=== PATIENT | male | born 1965 | race Caucasian/White ===

== ENCOUNTER 2016-08-06 15:21 | Inpatient (IN) | payer BC ==
[~2016-08-06] VITALS: Ht 177.8 cm; Wt 100.6 kg
--- NOTE | 2016-08-06 16:05 | EMERGENCY ROOM VISIT NOTE ---
History First contact with patient: 15:37 Chief Complaint: CALF PAIN Stated Complaint: MODERATE TO SEVERE CALF PAIN, LEFT History of Present Illness The patient is a 50 year old male who presents to the Emergency Room with complaints of left calf pain. The patient states that he has had pain in the left calf for 5 days. He described the pain as a tightness. He states that his progressively worsened over the last week. He rates his discomfort a 5/10. The patient does not recall any specific injury. 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 He had been on Coumadin in the past but it was stopped after several episodes of hemoptysis. He has seen Dr. Cortes. The patient denies any pain in his chest or trouble breathing. He denies any fever. He denies any cough. He denies any knee pain. He denies any redness, swelling or warmth. Review of Systems A 10 system review of systems was completed with positives and pertinent negatives listed in the HPI. Past Medical/Surgical History Medical Problems: (1) History of histoplasmosis (2) Hypothyroidism Nos (3) Idiopathic fibrosing mediastinitis (4) Migraine W Aura W/O Intract Mgrn W/O Status Migrainosus (5) Oth Pulmon Embolism/Infarct (6) Pulmonary emboli (7) Pulmonary hypertension associated with mediastinal fibrosis Family History Cancer Social History Smoking Status: Never Smoker Alcohol Use: occasionally Marital Status: Occupation Status: retired, disabled Current/Historical Medications Scheduled Budesonide/Formoterol Fumarate (Symbicort 160/4.5 Inhaler ), 1 PUFFS INH BID Cetirizine/Pseudoephedrine (Zyrtec-D Er 5MG/120MG), 1 TABLET PO Q12H Levothyroxine Sodium (Synthroid), 50 MCG PO DAILY Mometasone Furoate (Nasonex), 2 SPRAYS FABIANO DAILY Nortriptyline (Pamelor), 50 MG PO HS Scheduled PRN Albuterol Inhaler (Ventolin Inhaler), 2 PUFFS INH QID PRN for ALLERGIC REACTION Oxycodone HCl (Oxycodone HCl), 5 MG PO Q4 PRN for Pain Allergies Coded Allergies: No Known Allergies (Verified , 10/29/15) Physical Exam Vital Signs Date Time Temp Pulse Resp B/P Pulse Ox O2 Delivery O2 Flow Rate FiO2 08/06/16 19:24 74 18 113/75 94 Room Air 08/06/16 17:29 71 16 111/78 95 08/06/16 15:31 36.7 91 18 125/81 93 Room Air Physical Exam VITALS: Vitals are noted on the nurse's note and reviewed by myself. Vital signs stable. GENERAL: This is a 50-year-old male, in no acute distress, nondiaphoretic, well- developed well-nourished. SKIN: The skin was without rashes, erythema, edema, or bruising. There is no tenting of the skin. Capillary reflex less than 2 seconds. HEAD: Normocephalic atraumatic. EARS: The external ears are normal in appearance. EYES: Pupils equal round and reactive to light and accommodation. Conjunctivae without injection, sclerae without icterus. Extraocular movements intact. NOSE: Patent, turbinates without inflammation or discharge. MOUTH: Mucous membranes moist. Tonsils are not enlarged. Pharynx without erythema or exudate. Uvula midline. Airway patent. Tongue does not deviate. NECK: Supple without nuchal rigidity. No lymphadenopathy. No thyromegaly. Cervical spine is nontender. No JVD. HEART: Regular rate and rhythm without murmurs gallops or rubs. LUNGS: Clear to auscultation bilaterally without wheezes, rales or rhonchi. No retractions or accessory muscle use. MUSCULOSKELETAL: No muscle atrophy, erythema, or edema noted. Full range of motion without joint tenderness in all extremities. There is tenderness to palpation of the left calf. Normal gait. Strength 5/5 throughout. NEURO: Patient was alert and oriented to person place and time. No focal neurological deficits. Medical Decision & Procedures ER Provider Diagnostic Interpretation: LEFT LOWER EXTREMITY VENOUS DOPPLER CLINICAL HISTORY: Left calf pain. COMPARISON STUDY: Left lower extremity venous Doppler August 16, 2006. TECHNIQUE: Sonography of the deep venous system of the left lower extremity was performed. Compression and augmentation were evaluated. FINDINGS: The left common femoral and superficial femoral veins were patent. There is thrombus within a superficial vein which drains into the left popliteal vein. The thrombus slightly extends into the left popliteal vein. No additional sites of venous thrombus identified within the left lower extremity. IMPRESSION: Deep venous thrombus within the left popliteal vein and superficial thrombus within a vein which drains into the left popliteal vein. Laboratory Results 08/06/16 16:05 Red Blood Count 4.63, Mean Corpuscular Volume 89.6, Mean Corpuscular Hemoglobin 32.0, Mean Corpuscular Hemoglobin Concent 35.7, Mean Platelet Volume 8.9, Neutrophils (%) (Auto) 58.3, Lymphocytes (%) (Auto) 30.0, Monocytes (%) (Auto) 9.9, Eosinophils (%) (Auto) 1.3, Basophils (%) (Auto) 0.3, Neutrophils # (Auto) 3.47, Lymphocytes # (Auto) 1.79, Monocytes # (Auto) 0.59, Eosinophils # (Auto) 0.08, Basophils # (Auto) 0.02 08/06/16 16:05 Test 08/06/16 16:05 White Blood Count 5.96 K/uL (4.8-10.8) Red Blood Count 4.63 M/uL (4.7-6.1) Hemoglobin 14.8 g/dL (14.0-18.0) Hematocrit 41.5 % (42-52) Mean Corpuscular Volume 89.6 fL (80-100) Mean Corpuscular Hemoglobin 32.0 pg (25-34) Mean Corpuscular Hemoglobin Concent 35.7 g/dl (32-36) Platelet Count 162 K/uL (130-400) Mean Platelet Volume 8.9 fL (7.4-10.4) Neutrophils (%) (Auto) 58.3 % Lymphocytes (%) (Auto) 30.0 % Monocytes (%) (Auto) 9.9 % Eosinophils (%) (Auto) 1.3 % Basophils (%) (Auto) 0.3 % Neutrophils # (Auto) 3.47 K/uL (1.4-6.5) Lymphocytes # (Auto) 1.79 K/uL (1.2-3.4) Monocytes # (Auto) 0.59 K/uL (0.11-0.59) Eosinophils # (Auto) 0.08 K/uL (0-0.5) Basophils # (Auto) 0.02 K/uL (0-0.2) RDW Standard Deviation 42.4 fL (36.4-46.3) RDW Coefficient of Variation 13.0 % (11.5-14.5) Immature Granulocyte % (Auto) 0.2 % Immature Granulocyte # (Auto) 0.01 K/uL (0.00-0.02) Prothrombin Time 10.1 SECONDS (9.0-12.0) Prothromb Time International Ratio 0.9 (0.9-1.1) Activated Partial Thromboplast Time 28.7 SECONDS (21.0-31.0) Partial Thromboplastin Ratio 1.1 Anion Gap 11.0 mmol/L (3-11) Est Creatinine Clear Calc Drug Dose 136.8 ml/min Estimated GFR () 112.1 Estimated GFR (Non- 96.7 BUN/Creatinine Ratio 19.5 (10-20) Calcium Level 8.9 mg/dl (8.5-10.1) Total Bilirubin 0.3 mg/dl (0.2-1) Aspartate Amino Transf (AST/SGOT) 27 U/L (15-37) Alanine Aminotransferase (ALT/SGPT) 41 U/L (12-78) Alkaline Phosphatase 104 U/L (45-117) Total Protein 6.7 gm/dl (6.4-8.2) Albumin 3.8 gm/dl (3.4-5.0) Globulin 2.9 gm/dl (2.5-4.0) Albumin/Globulin Ratio 1.3 (0.9-2) ED Course The patient was seen and examined. Previous visits were reviewed. The patient does not have a fever or leukocytosis. He does not have any significant electrolyte abnormalities. INR is 0.9. Ultrasound of the left lower extremity confirms DVT The patient has a very complicated and extensive past medical history. He has fibrosing mediastinitis secondary to chronic histoplasmosis and has had subsequent superior vena cava syndrome and pulmonary hypertension. The patient had been on anticoagulants until last October when he developed hemoptysis. The patient denies any pain in his chest or trouble breathing currently. His vital signs are stable. Given the patient's complex history and DVT, he will require further evaluation and consultation in the treatment of the DVT. I discussed the case with Dr. Cox and he will evaluate the patient. The case was also discussed with Dr. Gil who agrees with the assessment and treatment plan Medical Decision The differential diagnosis includes DVT, muscle strain, contusion, cellulitis, superficial thrombophlebitis, PE, coagulopathy, among others Impression Primary Impression: Leg DVT (deep venous thromboembolism), acute Departure Information Referrals Temo Cortes M.D. (PCP) Patient Instructions My [facility] Problem Qualifiers Primary Impression: Leg DVT (deep venous thromboembolism), acute Laterality: left Qualified Codes: I82.402 - Acute embolism and thrombosis of unspecified deep veins of left lower extremity
[2016-08-06 16:27] LABS: BASO % 0.3 %; BASO ABS # 0.02 K/uL (0-0.2); COMPLETE YES; EOS % 1.3 %; HEMATOCRIT 41.5 % (42-52); IG% 0.2 %; LYMPH ABS # 1.79 K/uL (1.2-3.4); MEAN CELL VOLUME 89.6 fL (80-100); MEAN CORPUSCULAR HGB CONC 35.7 g/dl (32-36); MEAN PLATELET VOLUME 8.9 fL (7.4-10.4); MONO % 9.9 %; NEUT % 58.3 %; PLATELET COUNT 162 K/uL (130-400); RED BLOOD COUNT 4.63 M/uL (4.7-6.1); WHITE BLOOD COUNT 5.96 K/uL (4.8-10.8)
[2016-08-06 16:38] LABS: INR 0.9 (0.9-1.1); PARTIAL THROMBOPLASTIN RATIO 1.1; PROTHROMBIN TIME (PATIENT) 10.1 SECONDS (9.0-12.0)
[2016-08-06 16:48] LABS: BUN/CREATININE RATIO 19.5 (10-20); CALCIUM 8.9 mg/dl (8.5-10.1); CREATININE 0.93 mg/dl (0.60-1.40); POTASSIUM 3.9 mmol/L (3.5-5.1)
[2016-08-06 16:51] LABS: ALB/GLOB RATIO 1.3 (0.9-2)
--- NOTE | 2016-08-06 17:34 | DIAGNOSTIC IMAGING REPORT ---
LEFT LOWER EXTREMITY VENOUS DOPPLER CLINICAL HISTORY: Left calf pain. COMPARISON STUDY: Left lower extremity venous Doppler August 16, 2006. TECHNIQUE: Sonography of the deep venous system of the left lower extremity was performed. Compression and augmentation were evaluated. FINDINGS: The left common femoral and superficial femoral veins were patent. There is thrombus within a superficial vein which drains into the left popliteal vein. The thrombus slightly extends into the left popliteal vein. No additional sites of venous thrombus identified within the left lower extremity. IMPRESSION: Deep venous thrombus within the left popliteal vein and superficial thrombus within a vein which drains into the left popliteal vein. Electronically signed by: Tucker Thornton M.D. 08/06/2016 5:32 PM Dictated Date/Time: 08/06/2016 5:30 PM
[2016-08-06] MEDS ORDERED: OPTIRAY 320 IV PRN (19:15)
--- NOTE | 2016-08-06 20:09 | DIAGNOSTIC IMAGING REPORT ---
RIGHT LOWER EXTREMITY VENOUS DOPPLER CLINICAL HISTORY: Left lower extremity deep venous thrombus. COMPARISON STUDY: Right lower extremity venous Doppler October 21 2015. TECHNIQUE: Sonography of the deep venous system of the right lower extremity was performed. Compression and augmentation were evaluated. FINDINGS: The right common femoral, superficial femoral and popliteal veins were compressible. Augmentation was normal. Flow was shown within the deep calf vessels. IMPRESSION: No evidence of deep venous thrombus within the right lower extremity. Electronically signed by: Tucker Thornton M.D. 08/06/2016 8:07 PM Dictated Date/Time: 08/06/2016 8:06 PM
--- NOTE | 2016-08-06 21:24 | DIAGNOSTIC IMAGING REPORT ---
CT ANGIOGRAPHY OF THE CHEST, PULMONARY EMBOLUS PROTOCOL CLINICAL HISTORY: Left lower extremity deep venous thrombus. History of hemoptysis and fibrosing mediastinitis. COMPARISON STUDY: Chest CT October 29, 2015. TECHNIQUE: Following IV administration of 105 mL of Optiray-320, helical axial images of the chest were obtained utilizing the pulmonary embolus protocol. Maximal intensity projections and sagittal and coronal reformats were viewed on an independent 3D workstation. IV contrast was administered without complication. CT DOSE: 702.41 mGy.cm FINDINGS: Partially calcified ill-defined mass-like abnormality centered within the right hilum is unchanged. An occluded stent within the right main pulmonary artery is unchanged in appearance. The appearance of the mediastinum is similar to exam of October 29, 2015. There is associated chronic occlusion of the superior vena cava with associated significant collateral formation. Mild cardiomegaly is unchanged. Mild dilatation of the central pulmonary arteries is noted. There has been interval development of numerous left-sided pulmonary emboli including segmental emboli within the left upper and lower lobes. Extensive ground glass opacity within the right lung has slightly progressed. There is mosaic attenuation with groundglass opacity within the left lung. Bony thorax and upper abdomen are unremarkable. IMPRESSION: 1. Interval development of numerous left-sided pulmonary emboli. Discussed with Dr. Connell at time of dictation. 2. No change in appearance of the occluded right pulmonary artery stent. No contrast reaches the right pulmonary artery system. Slight increase in nonspecific groundglass opacity and interstitial thickening within the right lung since prior exam. 3. Chronic SVC occlusion with associated collateral formation. 4. Dilated central pulmonary arteries which suggests pulmonary arterial hypertension. 5. Stable findings suggestive of fibrosing mediastinitis. Electronically signed by: Tucker Thornton M.D. 08/06/2016 9:22 PM Dictated Date/Time: 08/06/2016 8:24 PM
[2016-08-06] MEDS ORDERED: MoRPHine SULFATE 2 MG/ML CARP IV PRN (21:30)
[2016-08-06] MEDS ORDERED: LORAZEPAM 2 MG/ML 1 ML VIAL IV PRN (21:30)
[2016-08-06] MEDS ORDERED: DiphenhydrAMINE HCL 50 MG/ML VIAL IV PRN (21:30)
[2016-08-06] MEDS ORDERED: LEVALBUTEROL/IPRATROPIUM NEB INH PRN (21:30)
[2016-08-06] MEDS ORDERED: ALBUTEROL HFA 8 GM INHALER INH PRN (21:30)
[2016-08-06] MEDS ORDERED: ONDANSETRON INJ 2 MG/ML 2 ML VIAL IV PRN (21:30)
[2016-08-06] MEDS ORDERED: PROMETHAZINE HCL INJ 12.5 MG in SODIUM CHLORIDE 0.9% 50ML 50 ML IV PRN (21:30)
[2016-08-06] MEDS ORDERED: ZOLPIDEM TARTRATE 5 MG TAB PO PRN (21:30)
[2016-08-06] MEDS ORDERED: ACETAMINOPHEN 325 MG TAB PO PRN (21:30)
[2016-08-06] MEDS ORDERED: IPRATROPIUM BROMIDE NEB SOLN 0.02% 2.5 ML VIAL INH PRN (22:00)
[2016-08-06] MEDS ORDERED: LEVALBUTEROL 1.25MG/0.5ML NEB INH PRN (22:00)
[2016-08-06 22:02] VITALS: BP 133/86; PULSE 74; TEMP 36.7; O2SAT 97
[2016-08-06] MEDS ORDERED: NURSING VERBAL MED ORDER ONE (22:45)
--- NOTE | 2016-08-06 23:02 | History and Physical ---
History & Physical Date & Time of Service: Aug 06, 2016 at 22:44 Chief Complaint: Pulmonary Emboli, Pulmonary Hypertension Primary Care Physician: Temo Cortes M.D. History of Present Illness Source: patient, spouse The patient is a 50-year-old male with a past medical history of idiopathic fibrosing mediastinitis, superior vena cava syndrome, pulmonary artery stenosis , who presents emergency department complaining of left calf pain that began about one week ago and has progressively worsened. He has not had any recent injury and has not had any recent travel. He had been on Coumadin in the past, but this was stopped after having had several episodes of hemoptysis. The patient has not had any chest pain or change in his usual breathing patterns. He has a chronic intermittent cough as nonproductive. Past Medical/Surgical History Medical Problems: (1) History of histoplasmosis Status: Chronic (2) Idiopathic fibrosing mediastinitis Status: Chronic (3) Pulmonary hypertension associated with mediastinal fibrosis Status: Chronic Family History Cancer Social History Smoking Status: Never Smoker Smokeless Tobacco Use: No Alcohol Use: none Drug Use: none Marital Status: Housing status: lives with family Occupational Status: retired, disabled Immunizations History of Influenza Vaccine: No Influenza Vaccine Date: May 06, 2011 History of Tetanus Vaccine?: Yes Tetanus Immunization Date: May 18, 2004 History of Pneumococcal: 2009 Pneumococcal Date: May 18, 2008 History of Hepatitis B Vaccine: No Multi-Drug Resistant Organisms History of MDRO: No Allergies Coded Allergies: No Known Allergies (Verified , 10/29/15) Home Medications Scheduled Budesonide/Formoterol Fumarate (Symbicort 160/4.5 Inhaler ), 1 PUFFS INH BID Cetirizine/Pseudoephedrine (Zyrtec-D Er 5MG/120MG), 1 TABLET PO Q12H Levothyroxine Sodium (Synthroid), 50 MCG PO DAILY Mometasone Furoate (Nasonex), 2 SPRAYS FABIANO DAILY Nortriptyline (Pamelor), 50 MG PO HS Scheduled PRN Albuterol Inhaler (Ventolin Inhaler), 2 PUFFS INH QID PRN for ALLERGIC REACTION Oxycodone HCl (Oxycodone HCl), 5 MG PO Q4 PRN for Pain Review of Systems The patient denies chest pain, palpitations, any change in breathing, vision change, hearing change, sore throat, fevers, chills, sweats, weight change, fatigue, nausea, vomiting, abdominal pain, pelvic pain, blood in urine or stool , dysuria, urinary frequency or urgency, lightheadedness, dizziness, headache, memory loss, rash, abnormal bruising or bleeding, imbalance, focal or generalized weakness, numbness or tingling in arms, back or neck pain, night sweats, or allergy symptoms. The review of systems is otherwise negative other than for that already noted above, and at least 10 systems have been reviewed. Physical Exam Vital Signs Date Time Temp Pulse Resp B/P Pulse Ox O2 Delivery O2 Flow Rate FiO2 08/06/16 22:02 36.7 74 18 133/86 97 Room Air 08/06/16 21:39 79 16 117/76 95 Room Air 08/06/16 19:24 74 18 113/75 94 Room Air 08/06/16 17:29 71 16 111/78 95 08/06/16 15:31 36.7 91 18 125/81 93 Room Air The patient is awake, well-developed and adequately nourished, alert and oriented 3, normocephalic and atraumatic, lying in bed and in no acute distress. HEENT--PERRL, EOMI, mucous membranes moist, and oropharynx normal. Neck--supple, no JVD or bruits, thyroid normal, trachea midline, no adenopathy. Heart--normal S1 and S2, no extra beats, no murmurs, rubs or gallops. Lungs--crackles at the right base to half way up, scattered crackles on the left , no respiratory distress, no accessory muscle use. Abdomen--normal bowel sounds and soft, nontender and nondistended, no hernias or masses, no organomegaly. Extremities--no cyanosis, clubbing. There is trace to 1+ pitting Edema on the left, and a mild increase in circumference on the left compared to right. There are good distal pulses b/l. Dermatologic--normal skin turgor, normal color, warm and dry, no abnormal lymph nodes, no rash. Neurologic--cranial nerves II through XII grossly intact. Psychiatric--normal affect. Diagnostics Laboratory Results Results Past 24 Hours Test 08/06/16 16:05 08/06/16 21:23 08/06/16 21:51 Range/Units White Blood Count 5.96 4.8-10.8 K/uL Red Blood Count 4.63 4.7-6.1 M/uL Hemoglobin 14.8 14.0-18.0 g/dL Hematocrit 41.5 42-52 % Mean Corpuscular Volume 89.6 80-100 fL Mean Corpuscular Hemoglobin 32.0 25-34 pg Mean Corpuscular Hemoglobin Concent 35.7 32-36 g/dl Platelet Count 162 130-400 K/uL Mean Platelet Volume 8.9 7.4-10.4 fL Neutrophils (%) (Auto) 58.3 % Lymphocytes (%) (Auto) 30.0 % Monocytes (%) (Auto) 9.9 % Eosinophils (%) (Auto) 1.3 % Basophils (%) (Auto) 0.3 % Neutrophils # (Auto) 3.47 1.4-6.5 K/uL Lymphocytes # (Auto) 1.79 1.2-3.4 K/uL Monocytes # (Auto) 0.59 0.11-0.59 K/uL Eosinophils # (Auto) 0.08 0-0.5 K/uL Basophils # (Auto) 0.02 0-0.2 K/uL RDW Standard Deviation 42.4 36.4-46.3 fL RDW Coefficient of Variation 13.0 11.5-14.5 % Immature Granulocyte % (Auto) 0.2 % Immature Granulocyte # (Auto) 0.01 0.00-0.02 K/uL Prothrombin Time 10.1 9.0-12.0 SECONDS Prothromb Time International Ratio 0.9 0.9-1.1 Activated Partial Thromboplast Time 28.7 21.0-31.0 SECONDS Partial Thromboplastin Ratio 1.1 Sodium Level 142 136-145 mmol/L Potassium Level 3.9 3.5-5.1 mmol/L Chloride Level 106 98-107 mmol/L Carbon Dioxide Level 25 21-32 mmol/L Anion Gap 11.0 3-11 mmol/L Blood Urea Nitrogen 18 7-18 mg/dl Creatinine 0.93 0.60-1.40 mg/dl Est Creatinine Clear Calc Drug Dose 136.8 ml/min Estimated GFR () 112.1 Estimated GFR (Non- 96.7 BUN/Creatinine Ratio 19.5 10-20 Random Glucose 97 70-99 mg/dl Calcium Level 8.9 8.5-10.1 mg/dl Total Bilirubin 0.3 0.2-1 mg/dl Aspartate Amino Transf (AST/SGOT) 27 15-37 U/L Alanine Aminotransferase (ALT/SGPT) 41 12-78 U/L Alkaline Phosphatase 104 45-117 U/L Total Protein 6.7 6.4-8.2 gm/dl Albumin 3.8 3.4-5.0 gm/dl Globulin 2.9 2.5-4.0 gm/dl Albumin/Globulin Ratio 1.3 0.9-2 Creatine Kinase MB Ratio 0-3.0 Total Creatine Kinase 56 39-308 U/L Creatine Kinase MB < 0.5 0.5-3.6 ng/ml Troponin I < 0.015 0-0.045 ng/ml Diagnostic Radiology Patient Name: LO PEREZ Unit Number: [id number] Dictated: 08/06/161729 Transcribed: 08/06/161729 DAVE Printed Date/Time: [~ rep prt dt]/[~ rep prt tm] [~ rep ct labl] - [~ rep ct ivnm] [facility] Radiology Department [place] [id number] Dictated: 08/06/161729 Transcribed: 08/06/161729 JA Printed Date/Time: [~ rep prt dt]/[~ rep prt tm] [~ rep ct labl] - [~ rep ct ivnm] CLINICAL HISTORY: Left calf pain. COMPARISON STUDY: Left lower extremity venous Doppler August 16, 2006. TECHNIQUE: Sonography of the deep venous system of the left lower extremity was performed. Compression and augmentation were evaluated. FINDINGS: The left common femoral and superficial femoral veins were patent. There is thrombus within a superficial vein which drains into the left popliteal vein. The thrombus slightly extends into the left popliteal vein. No additional sites of venous thrombus identified within the left lower extremity. IMPRESSION: Deep venous thrombus within the left popliteal vein and superficial thrombus within a vein which drains into the left popliteal vein. Electronically signed by: Tucker Thornton M.D. 08/06/2016 5:32 PM Dictated Date/Time: 08/06/2016 5:30 PM The status of this report is Signed. Draft = Not yet reviewed or approved by Radiologist. Signed = Reviewed and approved by Radiologist. <AttendingPhy></AttendingPhy> <FamilyPhy>Temo Cortes M.D.</FamilyPhy> < PrimaryPhy>Temo Cortes M.D.</PrimaryPhy> <UnitNumber>[id number]</ UnitNumber> <VisitNumber>[id number]</VisitNumber> <PatientName>LO PEREZ </PatientName> <DateOfBirth>1965</DateOfBirth> <Location>[facility]</Location> <ServiceDate>08/06/16</ServiceDate> <MNE>ESINDI</MNE> <OrderingPhy>Stephanie Harper PA-C</OrderingPhy> <OrderingPhyMNE>f rep ord dr cifuentes</OrderingPhyMNE > <DictatingPhyMNE>f rep dict dr cifuentes</DictatingPhyMNE> <CCListMNE>f rep ct mne</ CCListMNE> <AdmittingPhyMNE>f pt admit dr cifuentes</AdmittingPhyMNE> <AttendingPhyMNE >f pt attend dr cifuentes</AttendingPhyMNE> <ConsultingPhyMNE>f pt consult dr cifuentes</ConsultingPhyMNE> <FamilyPhyMNE>f pt fam dr cifuentes</FamilyPhyMNE> <OtherPhyMNE>f pt other dr cifuentes</OtherPhyMNE> < PrimaryPhyMNE>f pt prim care dr cifuentes</PrimaryPhyMNE> <ReferringPhyMNE>f pt referring dr cifuentes</ReferringPhyMNE> Patient Name: LO PEREZ Unit Number: [id number] Dictated: 08/06/162005 Transcribed: 08/06/162005 DAVE Printed Date/Time: [~ rep prt dt]/[~ rep prt tm] [~ rep ct labl] - [~ rep ct ivnm] [facility] [place] [address] Dictated: 08/06/162005 Transcribed: 08/06/162005 DAVE Printed Date/Time: [~ rep prt dt]/[~ rep prt tm] [~ rep ct labl] - [~ rep ct ivnm] [~ rep ct add3]] RIGHT LOWER EXTREMITY VENOUS DOPPLER CLINICAL HISTORY: Left lower extremity deep venous thrombus. COMPARISON STUDY: Right lower extremity venous Doppler October 21 2015. TECHNIQUE: Sonography of the deep venous system of the right lower extremity was performed. Compression and augmentation were evaluated. FINDINGS: The right common femoral, superficial femoral and popliteal veins were compressible. Augmentation was normal. Flow was shown within the deep calf vessels. IMPRESSION: No evidence of deep venous thrombus within the right lower extremity. Electronically signed by: Tucker Thornton M.D. 08/06/2016 8:07 PM Dictated Date/Time: 08/06/2016 8:06 PM The status of this report is Signed. Draft = Not yet reviewed or approved by Radiologist. Signed = Reviewed and approved by Radiologist. <AttendingPhy></AttendingPhy> <FamilyPhy>Temo Cortes M.D.</FamilyPhy> < PrimaryPhy>Temo Cortes M.D.</PrimaryPhy> <UnitNumber>[id number]</ UnitNumber> <VisitNumber>[id number]</VisitNumber> <PatientName>LO PEREZ </PatientName> <DateOfBirth>1965</DateOfBirth> <Location>[facility]</Location> <ServiceDate>08/06/16</ServiceDate> <MNE>ESINDI</MNE> <OrderingPhy>Bernardo Connell M.D.</OrderingPhy> <OrderingPhyMNE>f rep ord dr cifuentes</OrderingPhyMNE> < DictatingPhyMNE>f rep dict dr cifuentes</DictatingPhyMNE> <CCListMNE>f rep ct mne</ CCListMNE> <AdmittingPhyMNE>f pt admit dr cifuentes</AdmittingPhyMNE> <AttendingPhyMNE >f pt attend dr cifuentes</AttendingPhyMNE> <ConsultingPhyMNE>f pt consult dr cifuentes</ConsultingPhyMNE> <FamilyPhyMNE>f pt fam dr cifuentes</FamilyPhyMNE> <OtherPhyMNE>f pt other dr cifuentes</OtherPhyMNE> < PrimaryPhyMNE>f pt prim care dr cifuentes</PrimaryPhyMNE> <ReferringPhyMNE>f pt referring dr cifuentes</ReferringPhyMNE> Patient Name: LO PEREZ Unit Number: [id number] Dictated: 08/06/162023 Transcribed: 08/06/162035 DAVE Printed Date/Time: [~ rep prt dt]/[~ rep prt tm] [~ rep ct labl] - [~ rep ct ivnm] [facility] Radiology Department [place], [place] [id number] Dictated: 08/06/162023 Transcribed: 08/06/162035 DAVE Printed Date/Time: [~ rep prt dt]/[~ rep prt tm] [~ rep ct labl] - [~ rep ct ivnm] IMAGING [~ rep ct add3]] CT ANGIOGRAPHY OF THE CHEST, PULMONARY EMBOLUS PROTOCOL CLINICAL HISTORY: Left lower extremity deep venous thrombus. History of hemoptysis and fibrosing mediastinitis. COMPARISON STUDY: Chest CT October 29, 2015. TECHNIQUE: Following IV administration of 105 mL of Optiray-320, helical axial images of the chest were obtained utilizing the pulmonary embolus protocol. Maximal intensity projections and sagittal and coronal reformats were viewed on an independent 3D workstation. IV contrast was administered without complication. CT DOSE: 702.41 mGy.cm FINDINGS: Partially calcified ill-defined mass-like abnormality centered within the right hilum is unchanged. An occluded stent within the right main pulmonary artery is unchanged in appearance. The appearance of the mediastinum is similar to exam of October 29, 2015. There is associated chronic occlusion of the superior vena cava with associated significant collateral formation. Mild cardiomegaly is unchanged. Mild dilatation of the central pulmonary arteries is noted. There has been interval development of numerous left-sided pulmonary emboli including segmental emboli within the left upper and lower lobes. Extensive ground glass opacity within the right lung has slightly progressed. There is mosaic attenuation with groundglass opacity within the left lung. Bony thorax and upper abdomen are unremarkable. IMPRESSION: 1. Interval development of numerous left-sided pulmonary emboli. Discussed with Dr. Connell at time of dictation. 2. No change in appearance of the occluded right pulmonary artery stent. No contrast reaches the right pulmonary artery system. Slight increase in nonspecific groundglass opacity and interstitial thickening within the right lung since prior exam. 3. Chronic SVC occlusion with associated collateral formation. 4. Dilated central pulmonary arteries which suggests pulmonary arterial hypertension. 5. Stable findings suggestive of fibrosing mediastinitis. Electronically signed by: Tucker Thornton M.D. 08/06/2016 9:22 PM Dictated Date/Time: 08/06/2016 8:24 PM The status of this report is Signed. Draft = Not yet reviewed or approved by Radiologist. Signed = Reviewed and approved by Radiologist. <AttendingPhy></AttendingPhy> <FamilyPhy>Temo Cortes M.D.</FamilyPhy> < PrimaryPhy>Temo Cortes M.D.</PrimaryPhy> <UnitNumber>[id number]</ UnitNumber> <VisitNumber>[id number]</VisitNumber> <PatientName>LO PEREZ </PatientName> <DateOfBirth>1965</DateOfBirth> <Location>[facility]</Location> <ServiceDate>08/06/16</ServiceDate> <MNE>ESINDI</MNE> <OrderingPhy>Bernardo Connell M.D.</OrderingPhy> <OrderingPhyMNE>f rep ord dr cifuentes</OrderingPhyMNE> < DictatingPhyMNE>f rep dict dr cifuentes</DictatingPhyMNE> <CCListMNE>f rep ct esau</ CCListMNE> <AdmittingPhyMNE>f pt admit dr cifuentes</AdmittingPhyMNE> <AttendingPhyMNE >f pt attend dr cifuentes</AttendingPhyMNE> <ConsultingPhyMNE>f pt consult dr cifuentes</ConsultingPhyMNE> <FamilyPhyMNE>f pt fam dr cifuentes</FamilyPhyMNE> <OtherPhyMNE>f pt other dr cifuentes</OtherPhyMNE> < PrimaryPhyMNE>f pt prim care dr cifuentes</PrimaryPhyMNE> <ReferringPhyMNE>f pt referring dr cifuentes</ReferringPhyMNE> EKG EKG is pending Impression Assessment and Plan Numerous left-sided pulmonary emboli/left lower extremity DVT involving the popliteal vein/history of idiopathic pulmonary fibrosis with chronic occlusion of right pulmonary artery stent but otherwise stable findings--the patient will be admitted to the telemetry unit with reduced physical activity level. He has had a history of hemoptysis while on Coumadin in the past, and was recommended that the patient not resume intake regulation of Coumadin but consider aspirin which she has currently not been on. We'll order a hypercoagulable workup, follow him on telemetry for serial cardiac enzymes, rhythm monitoring, and we' ll order a 2-D echocardiogram to further assess pulmonary artery hypertension. We'll consult pulmonology, thoracic surgery, and hematology, for their opinion regarding risks and benefits of treatment to go forward with. The patient himself has not had any change in his respiratory status for functional ability. He may be a candidate for an IVC filter, to prevent any further migration of clots that are present now or new clot that she developed the future. We'll keep him nothing by mouth after midnight except medications in the event any procedures will be done in tomorrow. We'll continue Symbicort 160 /4.5, 1 inhalation twice a day, and have available Xopenex with Atrovent nebulizers to use every 2 hours when necessary. Hypothyroidism continue levothyroxine sodium 50 g by mouth daily. Insomnia--continue nortriptyline 50 mg by mouth at bedtime. Allergy--change Nasonex nasal spray to Flonase 2 sprays each nostril daily for formulary interchange. We'll hold on Zyrtec-D ER at this time. Level of Care Telemetry Advanced Directives Existing Advance Directive: No Existing Living Will: No Existing Power of Railway Signal Operator: No Resuscitation Status FULL RESUSCITATION VTE Prophylaxis VTE Risk Assessment Done? Y/N: Yes Risk Level: Moderate Given or contraindicated: Contraindicated
[2016-08-06] MEDS: NORTRIPTYLINE HCL 25 MG CAP PO SCH (23:04)
[2016-08-06] MEDS: NSS + 20MEQ KCL 1000ML 1,000 ML IV SCH (23:04)
[2016-08-06] MEDS: FLUTICASONE PROPIONATE NA SPR 16 GM BTL SCH (23:04)
[2016-08-06 23:36] VITALS: BP 108/67; PULSE 75; TEMP 36.7; O2SAT 96
[2016-08-07 00:01] VITALS: O2SAT 97
[2016-08-07 04:13] VITALS: BP 104/68; PULSE 81; TEMP 36.6; O2SAT 92
[2016-08-07] MEDS: LEVOTHYROXINE 50 MCG TAB PO SCH (06:20)
[2016-08-07 06:34] LABS: BASO % 0.2 %; BASO ABS # 0.01 K/uL (0-0.2); COMPLETE YES; EOS % 2.1 %; HEMATOCRIT 39.5 % (42-52); LYMPH % 31.5 %; LYMPH ABS # 1.64 K/uL (1.2-3.4); MEAN CELL VOLUME 90.2 fL (80-100); MEAN CORPUSCULAR HEMOGLOBIN 31.3 pg (25-34); MEAN CORPUSCULAR HGB CONC 34.7 g/dl (32-36); MEAN PLATELET VOLUME 9.1 fL (7.4-10.4); MONO % 8.4 %; NEUT % 57.8 %; PLATELET COUNT 158 K/uL (130-400); RED BLOOD COUNT 4.38 M/uL (4.7-6.1); WHITE BLOOD COUNT 5.21 K/uL (4.8-10.8)
[2016-08-07 06:45] LABS: PARTIAL THROMBOPLASTIN RATIO 1.1; PROTHROMBIN TIME (PATIENT) 10.7 SECONDS (9.0-12.0)
[2016-08-07 07:08] LABS: ALT/SGPT 37 U/L (12-78); BLOOD UREA NITROGEN 16 mg/dl (7-18); BUN/CREATININE RATIO 17.6 (10-20); CARBON DIOXIDE 27 mmol/L (21-32); CHLORIDE 107 mmol/L (98-107); CREATININE 0.89 mg/dl (0.60-1.40); GLUCOSE 78 mg/dl (70-99); MAGNESIUM 2.3 mg/dl (1.8-2.4); POTASSIUM 3.9 mmol/L (3.5-5.1); SODIUM 143 mmol/L (136-145)
[2016-08-07 07:12] LABS: ALKALINE PHOSPHATASE 89 U/L (45-117); AST/SGOT 23 U/L (15-37)
[2016-08-07 07:39] VITALS: Ht 177.8 cm; Wt 100.6 kg
[2016-08-07] MEDS ORDERED: PERFLUTREN LIPID MICROSPHERE (DEFINITY) IV ONE (08:03)
[2016-08-07 08:30] VITALS: BP 111/74; PULSE 75; TEMP 36.5; O2SAT 90
[2016-08-07] MEDS ORDERED: HEPARIN IV BOLUS 7,000 UNIT in SYRINGE 0 ML IV ONE (09:00)
[2016-08-07] MEDS ORDERED: FLUTICASONE PROPIONATE NA SPR 16 GM BTL SCH (09:00)
[2016-08-07] MEDS: HEPARIN 25,000 UNIT/500ML D5W 500 ML IV PRN (09:20)
[2016-08-07] MEDS: NSS + 20MEQ KCL 1000ML 1,000 ML IV SCH ×2 (09:23→19:17)
--- NOTE | 2016-08-07 10:51 | Oncology Consultation ---
Oncology/Heme Consultation Date of Consultation: Aug 07, 2016. Attending Physician: Bernardo Connell M.D. Reason for Consultation: DVT and pulmonary emboli History of Present Illness Mr. Bartholomew is a 50-year-old gentleman with a past medical history of fibrosing mediastinitis. Cause is not clear may be a path 8 although the patient and commented about possible histoplasmosis. In any case he has had findings of superior vena cava type issues in the past as well as pulmonary artery stenosis. He is been on Coumadin intermittently but the only history of a venous or arterial thrombosis was one event in October 2015 when he was found to have a radial artery thrombosis. He has not been on Coumadin recently. The cause of the radial artery thrombosis is not clear but presumably secondary to his thoracic vascular issues. He now presents with about a week's worth of left leg discomfort the calf. Yesterday an ultrasound of the left lower stem E showed deep venous thrombosis and a CTA of the chest demonstrated left-sided pulmonary emboli. Is now on heparin. He denies any other history of venous thrombosis. There has not been any trauma. He is not taking any hormones. He has not been subject to either surgeries in the past few months or long car rides or plane rides. 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 His mother has a history of age or fibrillation but no history of myocardial infarction and he can recall Social History Smoking Status: Never Smoker Smokeless Tobacco Use: No Alcohol Use: none Drug Use: none Marital Status: Occupation Status: retired, disabled Allergies Coded Allergies: No Known Allergies (Verified , 10/29/15) Home Medications Scheduled Budesonide/Formoterol Fumarate (Symbicort 160/4.5 Inhaler ), 1 PUFFS INH BID Cetirizine/Pseudoephedrine (Zyrtec-D Er 5MG/120MG), 1 TABLET PO Q12H Levothyroxine Sodium (Synthroid), 50 MCG PO DAILY Mometasone Furoate (Nasonex), 2 SPRAYS FABIANO DAILY Nortriptyline (Pamelor), 50 MG PO HS Scheduled PRN Albuterol Inhaler (Ventolin Inhaler), 2 PUFFS INH QID PRN for ALLERGIC REACTION Oxycodone HCl (Oxycodone HCl), 5 MG PO Q4 PRN for Pain Current Inpatient Medications Current Inpatient Medications Medications (Trade) Dose Ordered Sig/Brunilda Route Start Time Stop Time Status Last Admin Dose Admin Ioversol 100 ml 100 ml UD PRN IV 08/06/16 19:15 08/10/16 19:14 Potassium Chloride/Sodium Chloride (Nss + 20meq KCl 1000ml) 1,000 ml @ 100 mls/hr Q10H IV 08/06/16 22:30 09/05/16 22:29 08/07/16 09:23 100 MLS/HR Albuterol (Ventolin Hfa Inhaler) 2 puffs QID PRN INH 08/06/16 21:30 09/05/16 21:29 Budesonide/ Formoterol Fumarate (Symbicort 160/ 4.5 Inh) 1 puffs BID INH 08/07/16 09:00 09/06/16 08:59 Levothyroxine Sodium (Synthroid Tab) 50 mcg DAILYBB PO 08/07/16 06:00 09/06/16 05:59 08/07/16 06:20 50 MCG Nortriptyline HCl (Pamelor Cap) 50 mg HS PO 08/06/16 22:30 09/05/16 22:29 08/06/16 23:04 50 MG Lorazepam (Ativan Inj) 0.5 mg Q4H PRN IV 08/06/16 21:30 09/05/16 21:29 Acetaminophen (Tylenol Tab) 650 mg Q4H PRN PO 08/06/16 21:30 09/05/16 21:29 Diphenhydramine HCl 25 mg 25 mg Q4H PRN IV 08/06/16 21:30 09/05/16 21:29 Promethazine HCl/ Sodium Chloride (Phenergan Inj/ Nss 50ml) 50.5 ml @ 202 mls/hr Q4H PRN IV 08/06/16 21:30 09/05/16 21:29 Zolpidem Tartrate (Ambien Tab) 5 mg HSZ PRN PO 08/06/16 21:30 09/05/16 21:29 Ondansetron HCl (Zofran Inj) 4 mg Q6H PRN IV 08/06/16 21:30 09/05/16 21:29 Morphine Sulfate (MoRPHine SULFATE INJ) 2 mg Q2H PRN IV 08/06/16 21:30 08/20/16 21:29 Ipratropium [place] (Atrovent 0.02% 0.5MG/2.5ML Neb) 0.5 mg Q2H PRN INH 08/06/16 22:00 09/05/16 21:59 Levalbuterol (Xopenex 1.25MG/ 0.5ML Neb) 1.25 mg Q2H PRN INH 08/06/16 22:00 09/05/16 21:59 Fluticasone Propionate 2 sprays 2 sprays HS NA 08/06/16 22:45 09/05/16 22:44 08/06/16 23:04 2 SPRAYS Heparin Sodium/ Dextrose (Heparin 25,000 Unit/500ml D5W) 500 ml @ 30 mls/hr [id number] PRN IV 08/07/16 09:00 09/06/16 08:59 08/07/16 09:20 30 MLS/HR Review of Systems Constitutional: Negative for weight loss, night sweats, or fever Eyes: Negative for event change of vision ENT: Negative for epistaxis, nasal discharge, sore throat, or deafness Cardiovascular: Negative for chest pain, palpitations, dizziness, diaphoresis Respiratory: Negative for new shortness of breath,hemoptysis, or purulent cough Gastrointestinal: Negative for diarrhea, hematemesis, melena, nausea, vomiting , or dyspepsia Integumentary (skin): Negative for rash or jaundice discoloration Genitourinary: Negative for urinary frequency, hematuria, or dysuria Neurological: Negative for weakness, seizure activity, headache, or dizziness Lymphatic/Hematologic: Negative for petechiae, bleeding or new adenopathy Musculoskeletal: Negative for new joint or back pain Allergic/Immunologic: Negative for unusual rash or pruritis. Physical Exam Date Time Temp Pulse Resp B/P Pulse Ox O2 Delivery O2 Flow Rate FiO2 08/07/16 08:30 36.5 75 18 111/74 90 08/07/16 04:13 36.6 81 18 104/68 92 Room Air 08/07/16 04:00 Room Air 08/07/16 00:01 97 Room Air 08/06/16 23:36 36.7 75 19 108/67 96 Room Air 08/06/16 22:02 36.7 74 18 133/86 97 Room Air 08/06/16 21:39 79 16 117/76 95 Room Air 08/06/16 19:24 74 18 113/75 94 Room Air 08/06/16 17:29 71 16 111/78 95 08/06/16 15:31 36.7 91 18 125/81 93 Room Air Constitutional: vitals are stable. Alert pleasant gentleman Eyes: Eyes are URSULA EOMI without conjuctival erythema or icterus. ENT: External examination was negative for masses. Neck: Negative for masses or palpable thyromegaly Respiratory: Lung sounds were generally clear bilaterally Cardiovascular: Heart was RRR without significant murmur, gallops aoe rubs Gastrointestinal: No palpable hepatic or splenomegaly. The abdomen was soft with normal bowel sounds. Lymphatic system: there was no palpable peripheral lymphadenopathy Musculoskeletal System: The musculoskeletal system seemed concordant with age. Skin: The skin was negative for jaundice. Neurologic exam: The exam was negative for any focal findings. Deep tendon reflexes were equal and symmetrical. Psychiatric exam: Was essentially negative with normal mood and effect. Extremities: Negative for edema erythema Laboratory Results Last 24 Hours Test 08/06/16 16:05 08/06/16 21:23 08/06/16 21:51 08/07/16 05:30 White Blood Count 5.96 K/uL 5.21 K/uL Red Blood Count 4.63 M/uL 4.38 M/uL Hemoglobin 14.8 g/dL 13.7 g/dL Hematocrit 41.5 % 39.5 % Mean Corpuscular Volume 89.6 fL 90.2 fL Mean Corpuscular Hemoglobin 32.0 pg 31.3 pg Mean Corpuscular Hemoglobin Concent 35.7 g/dl 34.7 g/dl Platelet Count 162 K/uL 158 K/uL Mean Platelet Volume 8.9 fL 9.1 fL Neutrophils (%) (Auto) 58.3 % 57.8 % Lymphocytes (%) (Auto) 30.0 % 31.5 % Monocytes (%) (Auto) 9.9 % 8.4 % Eosinophils (%) (Auto) 1.3 % 2.1 % Basophils (%) (Auto) 0.3 % 0.2 % Neutrophils # (Auto) 3.47 K/uL 3.01 K/uL Lymphocytes # (Auto) 1.79 K/uL 1.64 K/uL Monocytes # (Auto) 0.59 K/uL 0.44 K/uL Eosinophils # (Auto) 0.08 K/uL 0.11 K/uL Basophils # (Auto) 0.02 K/uL 0.01 K/uL RDW Standard Deviation 42.4 fL 42.9 fL RDW Coefficient of Variation 13.0 % 13.0 % Immature Granulocyte % (Auto) 0.2 % 0.0 % Immature Granulocyte # (Auto) 0.01 K/uL 0.00 K/uL Prothrombin Time 10.1 SECONDS 10.7 SECONDS Prothromb Time International Ratio 0.9 1.0 Activated Partial Thromboplast Time 28.7 SECONDS 29.2 SECONDS Partial Thromboplastin Ratio 1.1 1.1 Sodium Level 142 mmol/L 143 mmol/L Potassium Level 3.9 mmol/L 3.9 mmol/L Chloride Level 106 mmol/L 107 mmol/L Carbon Dioxide Level 25 mmol/L 27 mmol/L Anion Gap 11.0 mmol/L 9.0 mmol/L Blood Urea Nitrogen 18 mg/dl 16 mg/dl Creatinine 0.93 mg/dl 0.89 mg/dl Est Creatinine Clear Calc Drug Dose 136.8 ml/min 143.0 ml/min Estimated GFR () 112.1 117.2 Estimated GFR (Non- 96.7 101.1 BUN/Creatinine Ratio 19.5 17.6 Random Glucose 97 mg/dl 78 mg/dl Calcium Level 8.9 mg/dl 8.0 mg/dl Total Bilirubin 0.3 mg/dl 0.4 mg/dl Aspartate Amino Transf (AST/SGOT) 27 U/L 23 U/L Alanine Aminotransferase (ALT/SGPT) 41 U/L 37 U/L Alkaline Phosphatase 104 U/L 89 U/L Total Protein 6.7 gm/dl 6.1 gm/dl Albumin 3.8 gm/dl 3.4 gm/dl Globulin 2.9 gm/dl Albumin/Globulin Ratio 1.3 Creatine Kinase MB Ratio Total Creatine Kinase 56 U/L 46 U/L Creatine Kinase MB < 0.5 ng/ml < 0.5 ng/ml Troponin I < 0.015 ng/ml < 0.015 ng/ml Magnesium Level 2.3 mg/dl Direct Bilirubin 0.1 mg/dl Assessment & Plan Pulmonary emboli and left lower extremity deep venous thrombosis. He has taken Coumadin intermittently in the past but with his last exposure to Coumadin apparently there was some hemoptysis. He reviews with me that there was an in- depth investigation as to the cause of the hemoptysis. He describes being told of fragile bronchial mucosa with bronchoscopy at that time. This is an unprovoked DVT/PE thromboembolic episode. He does have vascular issues in the chest. He has had a radial artery blood clot in the past. Anticoagulation systemically should go on for at least 3 months and I believe at this juncture there should be serious consideration of lifelong anticoagulation and I reviewed this notion with he and his today. A conversion to Coumadin but seem reasonable after a few days of heparin. I would prefer Coumadin so that if he should have bleeding issues in the future - correction can be quickly obtained. A thrombophilic workup is pending. A Fasting homocystine level should also be done and I would also like to see an ultrasound of the abdomen. Consultation with the anticoagulation clinic should be pursued so that he can be followed as an outpatient. We will most likely want to see him in our clinic on at least one occasion post hospitalization in addition. .
--- NOTE | 2016-08-07 10:58 | PULMONARY CONSULTATION ---
DATE OF CONSULTATION: 08/07/2016 The patient is a very pleasant 50-year-old male who was admitted through the Emergency Room and Dr. Connell has asked me to evaluate the patient from a pulmonary standpoint. He had 5 days' worth of left calf pain with calf tightness that worsened over a week's period of time. He graded the pain as a 5 on a scale of 1 through 10. He then presented to the Emergency Room, had a study Doppler study done that revealed deep vein thrombosis of left popliteal vein and a superficial thrombosis within the vein that drains into the left popliteal vein. No additional abnormalities were noted. Last night at 1835 hours he underwent a CAT scan of the chest with a history of hemoptysis and fibrosing mediastinitis, and was noted to have extensive ground-glass opacity in the right lower lobe with numerous left-sided pulmonary emboli which were segmental left upper lobe and left lower lobe. No emboli in the right lung were noted. 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 Changes consistent with fibrosing mediastinitis are noted. Evidence of pulmonary hypertension were noted as well. He has been anticoagulated and feels well at the present time. He actually denies any chest pain. He had some very mild shortness of breath periodically over the last week. He denies any other symptoms. He has not had any risks for DVT recently. He has not traveled recently. He has not had any sedentary activity. PAST MEDICAL HISTORY: Most significant for superior vena cava syndrome, pulmonary hypertension. 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 He had some stenting of the right pulmonary artery. Has been here with hemoptysis in October of 2015. Bronchoscopy showed changes with some bleeding coming from the right lower lobe with some bright red blood and dried blood coming from the right upper lobe as well. He was taken off anticoagulants at that time and has not had any further episodes of hemoptysis since then. He had been on chronic anticoagulation because of stenosis of the pulmonary artery stent. He has been evaluated at [place] by Dr. Fuentes and Dr. Nicolas Calero at that facility as well and also has been evaluated at [facility]. Thoughts of bypassing the superior vena cava were undertaken as well. He has significant stenosis of the right pulmonary artery. During that hospitalization, he had a V/Q scan that showed no flow to the right lung. He has been fairly stable. He had also had been evaluated by Dr. Hartley at that time and surgical intervention was thought a possibility in the future if needed. PAST MEDICAL HISTORY: Significant for idiopathic fibrosing mediastinitis, possibly secondary to chronic histo with superior vena cava syndrome, hemoptysis with bronchoscopy showing bleeding coming from the right upper lobe, stenosis of the right pulmonary artery with stenting. PAST SURGICAL HISTORY: As noted as above. FAMILY HISTORY: Unremarkable. There is a family history of cancer. SOCIAL HISTORY: He has never been a tobacco or alcohol user. He is not working at the present time. He is . His accompanies him for the evaluation today. He is disabled. He had been in the service. ALLERGIES: None. MEDICATIONS: Include Synthroid, Zyrtec, Symbicort, Nasonex, and Pamelor. He uses albuterol just on a p.r.n. basis. He remains fairly active at home with wood working and doing some traveling with his as well. PHYSICAL EXAMINATION: VITAL SIGNS: Stable and he is afebrile. Blood pressure 104/68, pulse 80 and regular, respiratory rate 18. His oxygen saturation 92% on room air. His weight is 99.6 kilograms. When he was here in October he was 97.5 kilograms. HEENT: Unremarkable. I do not really detect any significant venous plexus over the right hemithorax, but he is lying at about 30 degrees. No adenopathy is noted. There is no neck vein distention or HJR. HEART: Regular rate and rhythm. No murmurs are heard. LUNGS: Clear. They seem to be a bit better aerated actually in the left base with no crackles or rales noted. ABDOMEN: Soft, nontender. He has tenderness in the left calf with no edema noted. The Homans sign is positive. EKG shows normal sinus rhythm with incomplete right bundle branch block, which has not changed since October 2015. Venous Doppler of the lower extremity shows DVT in the left popliteal vein, and superficial thrombosis within a vein that drains into that area. Nothing else in the deeper system is noted. CT of the thorax as noted as above and reveals numerous pulmonary emboli, which are segmental and subsegmental in the left lower lobe and left upper lobe. White count 5.2, hemoglobin 13.7. PRP is unremarkable. Troponin unremarkable. IMPRESSION: 1. Acute pulmonary embolism. 2. Deep venous thrombosis of the left lower extremity. 3. Fibrosing mediastinitis with occlusion of the right pulmonary artery. 4. Hypothyroidism. RECOMMENDATIONS: Full anticoagulation. I do not see from the initial record that the patient is anticoagulated. I think full anticoagulation will be appropriate. If he develops significant hemoptysis, then Nilesh filter may be needed. He does not have any evidence of malignancy and low molecular weight heparin, such as Lovenox at full dose, will be appropriate. He can be transitioned then to Eliquis or Pradaxa. It would be my recommendation, since this patient only has flow to the left lung, to anticoagulate him for life unless there is a contraindication such as hemoptysis. Thanks for asking me to evaluate Mr. Bartholomew. Dr. Razo will picker feeder his care tomorrow morning.
[2016-08-07] MEDS ORDERED: NURSING VERBAL MED ORDER ONE ×2 (11:30→12:00)
[2016-08-07] MEDS: OXYCODONE HCL IR 5 MG TAB (IMMEDIATE RELEASE) PO PRN (11:33)
[2016-08-07] MEDS: BUDESONIDE/FORMOTEROL FUMARATE 160/4.5 60 PUFFS/INHALER INH SCH ×2 (11:33→20:11)
[2016-08-07 11:50] VITALS: BP 115/73; PULSE 80; TEMP 36.7; O2SAT 93
--- NOTE | 2016-08-07 14:06 | ECHOCARDIOGRAM REPORT ---
*NOTICE TO RECEIVING REPUBLICAN AGENCY This information is strictly Confidential and protected under [place] law. [place] law prohibits you from making any further disclosure of this information unless further disclosure is expressly permitted by the written consent of the person to whom it pertains or is authorized by law. A general authorization for the release of medical or other information is not sufficient for this purpose. Hospital accepts no responsibility if the information is made available to any other person, INCLUDING THE PATIENT. Interpretation Summary * Name: LO PEREZ Study Date: 08/07/2016 07:20 AM BP: 104/68 mmHg * Patient Location: [facility] [place][note 3] HR: 81 * : 1965 (M/d/yyyy) Gender: Male Height: 70 in * Age: 50 yrs Ethnicity: CA Weight: 219 lb * Ordering Physician: Bernardo Connell * Performed By: Carleen Pollock RDCS * * Reason For Study: \S\PE'S, PULM HTN, MEDIASTINAL FIBROSIS * BSA: 2.2 m2 * -- Conclusions -- * 1. Technically difficult study; enhanced with IV definity. * 2. Normal LV size, wall thickness, and systolic function. LVEF 55-60 %. No regional wall motion abnormalities. * 3. Normal RV size and function. * 4. No significant valvular pathology. * 5. Normal estimated PA and RA pressures. * 6. Compared with prior study on 12/15/2014: No significant change Procedure Details * A complete two-dimensional transthoracic echocardiogram was performed (2D, M-mode, Doppler and color flow Doppler). * A contrast injection of Definity was performed to improve assessment of LV function. * Contrast was injected into an intravenous site in the left arm. * One vial of Definity ultrasound contrast was diluted in normal saline to a total volume of 10 ml. A total of '2' ml of solution was administered during imaging. * Lot # [id number] of Definity utilized for procedure. * Expiration date JUL 02. * The attending nurse who injected the contrast agent was Malik Mckinney RN. * The study was technically difficult. Left Ventricle * The left ventricle is grossly normal size. * There is normal left ventricular wall thickness. * Ejection Fraction = 55-60%. * No regional wall motion abnormalities noted. Right Ventricle * The right ventricle is grossly normal size. * The right ventricular systolic function is normal as assessed by tricuspid annular plane systolic excursion (TAPSE) (normal >1.5 cm). Atria * The left atrial size is normal. * Right atrial size is normal. * No ASD detected; PFO is not assessed. Mitral Valve * The mitral valve is grossly normal. * There is no mitral valve stenosis. * Significant mitral regurgitation is absent. Tricuspid Valve * The tricuspid valve is not well visualized. * There is no tricuspid stenosis. * There is trace tricuspid regurgitation. * Est PASP 30-35 Aortic Valve * The aortic valve opens well. * The aortic valve is not well visualized. * No hemodynamically significant valvular aortic stenosis. * There is no significant aortic regurgitation. Pulmonic Valve * The pulmonary valve is inadequately visualized, but the Doppler data is adequate for interpretation. * Pulmonic stenosis is absent. * There is no significant pulmonary regurgitation. Great Vessels * The aortic root and proximal ascending aorta are normal sized. * No Doppler or imaging evidence of an aortic coarctation. Pericardium/Pleural * There is no pericardial effusion. Great Vessels * Normal inferior vena cava diameter and respiratory variation suggests normal central venous pressure. MMode 2D Measurements and Calculations IVSd 0.96 cm LVIDd 4.4 cm LVIDs 3.1 cm LVPWd 1.0 cm IVS/LVPW 0.93 FS 30.6 % EDV(Teich) 89.4 ml ESV(Teich) 37.3 ml EF(Teich) 58.3 % EDV(cubed) 87.3 ml ESV(cubed) 29.2 ml EF(cubed) 66.6 % LV mass(C)d 149.9 grams LV mass(C)dI 69.1 grams/m\S\2 CO(Teich) 4.3 l/min CI(Teich) 2.0 l/min/m\S\2 SV(Teich) 52.2 ml SI(Teich) 24.0 ml/m\S\2 CO(cubed) 4.8 l/min CI(cubed) 2.2 l/min/m\S\2 SV(cubed) 58.2 ml SI(cubed) 26.8 ml/m\S\2 Ao root diam 3.9 cm Ao root area 11.9 cm\S\2 LA dimension 2.5 cm asc Aorta Diam 3.5 cm LA/Ao 0.63 LVOT diam 2.0 cm LVOT area 3.2 cm\S\2 LVAd ap4 28.0 cm\S\2 LVLd ap4 7.7 cm EDV(MOD-sp4) 83.0 ml LVAs ap4 16.9 cm\S\2 LVLs ap4 7.2 cm ESV(MOD-sp4) 33.1 ml EF(MOD-sp4) 60.1 % LVAd ap2 28.9 cm\S\2 LVLd ap2 8.4 cm EDV(MOD-sp2) 81.9 ml LVAs ap2 16.7 cm\S\2 LVLs ap2 6.8 cm ESV(MOD-sp2) 33.1 ml EF(MOD-sp2) 59.6 % CO(MOD-sp4) 4.1 l/min CI(MOD-sp4) 1.9 l/min/m\S\2 SV(MOD-sp4) 49.9 ml SI(MOD-sp4) 23.0 ml/m\S\2 CO(MOD-sp2) 4.1 l/min CI(MOD-sp2) 1.9 l/min/m\S\2 SV(MOD-sp2) 48.8 ml SI(MOD-sp2) 22.5 ml/m\S\2 Doppler Measurements and Calculations MV E max antoine 84.4 cm/sec MV A max antoine 81.5 cm/sec MV E/A 1.0 MV dec time 0.20 sec Ao V2 max 103.9 cm/sec Ao max PG 4.3 mmHg Ao max PG (full) 0.17 mmHg ALEX(V,A) 3.1 cm\S\2 ALEX(V,D) 3.1 cm\S\2 LV V1 max PG 4.2 mmHg LV V1 max 101.9 cm/sec PA V2 max 82.8 cm/sec PA max PG 2.7 mmHg PA acc slope 537.7 cm/sec\S\2 PA acc time 0.11 sec TR max antoine 305.1 cm/sec PA pr(Accel) 29.9 mmHg
[2016-08-07 16:17] LABS: PARTIAL THROMBOPLASTIN RATIO 2.5
--- NOTE | 2016-08-07 18:58 | Progress Note ---
Subjective Date of Service: Aug 07, 2016. Subjective Pt evaluation today including: conversation w/ patient, conversation w/ family , physical exam, chart review, lab review, review of studies Problem List Medical Problems: (1) Hemoptysis Status: Acute (2) Hemoptysis Status: Acute (3) Leg DVT (deep venous thromboembolism), acute Status: Acute (4) Superior vena cava syndrome Status: Acute Review of Systems Constitutional: No chills, No fatigue, No fever, No problem reported, No see HPI, No sweats, No weakness, No weight loss Eyes: No diplopia, No discharge, No eye pain, No problem reported, No redness, No see HPI, No worsening of vision ENT: No dental problems, No hearing loss, No nasal symptoms, No problem reported, No see HPI, No sore throat, No tinnitus, No trouble swallowing, No unusual epistaxis Respiratory: No cough, No dyspnea at rest, No dyspnea on exertion, No hemoptysis, No problem reported, No see HPI, No shortness of breath, No sputum, No wheezing Cardiac: No PND, No chest pain, No claudication, No edema, No orthopnea, No palpitations, No problem reported, No see HPI Abdomen: No GI bleeding, No constipation, No diarrhea, No nausea, No pain, No problem reported, No see HPI, No vomiting Musculoskeletal: + muscle pain Male : No dysuria, No hematuria, No incontinence, No nocturia more than once/ night, No problem reported, No see HPI, No sexual dysfunction, No slowing stream , No urinary frequency Neurologic: No balance problems, No memory loss, No numbness/tingling, No paralysis, No problem reported, No see HPI, No vertigo, No weakness Psychiatric: No anhedonism, No anxiety, No depression symptoms, No insomnia, No problem reported, No see HPI, No substance abuse Heme: No abnormal bleeding/bruising, No clotting problems, No night sweats, No problem reported, No see HPI, No swollen lymph nodes Endo: No excessive thirst, No excessive urination, No fatigue, No problem reported, No see HPI Skin: No bleeding, No color change, No itch, No new/changing skin lesions, No problem reported, No rash, No see HPI Medications Current Inpatient Medications Medications (Trade) Dose Ordered Sig/Brunilda Route Start Time Stop Time Status Last Admin Dose Admin Ioversol 100 ml 100 ml UD PRN IV 08/06/16 19:15 08/10/16 19:14 Potassium Chloride/Sodium Chloride (Nss + 20meq KCl 1000ml) 1,000 ml @ 100 mls/hr Q10H IV 08/06/16 22:30 09/05/16 22:29 08/07/16 09:23 100 MLS/HR Albuterol (Ventolin Hfa Inhaler) 2 puffs QID PRN INH 08/06/16 21:30 09/05/16 21:29 Budesonide/ Formoterol Fumarate (Symbicort 160/ 4.5 Inh) 1 puffs BID INH 08/07/16 09:00 09/06/16 08:59 08/07/16 11:33 1 PUFFS Levothyroxine Sodium (Synthroid Tab) 50 mcg DAILYBB PO 08/07/16 06:00 09/06/16 05:59 08/07/16 06:20 50 MCG Nortriptyline HCl (Pamelor Cap) 50 mg HS PO 08/06/16 22:30 09/05/16 22:29 08/06/16 23:04 50 MG Lorazepam (Ativan Inj) 0.5 mg Q4H PRN IV 08/06/16 21:30 09/05/16 21:29 Acetaminophen (Tylenol Tab) 650 mg Q4H PRN PO 08/06/16 21:30 09/05/16 21:29 Diphenhydramine HCl 25 mg 25 mg Q4H PRN IV 08/06/16 21:30 09/05/16 21:29 Promethazine HCl/ Sodium Chloride (Phenergan Inj/ Nss 50ml) 50.5 ml @ 202 mls/hr Q4H PRN IV 08/06/16 21:30 09/05/16 21:29 Zolpidem Tartrate (Ambien Tab) 5 mg HSZ PRN PO 08/06/16 21:30 09/05/16 21:29 Ondansetron HCl (Zofran Inj) 4 mg Q6H PRN IV 08/06/16 21:30 09/05/16 21:29 Morphine Sulfate (MoRPHine SULFATE INJ) 2 mg Q2H PRN IV 08/06/16 21:30 08/20/16 21:29 Ipratropium [place] (Atrovent 0.02% 0.5MG/2.5ML Neb) 0.5 mg Q2H PRN INH 08/06/16 22:00 09/05/16 21:59 Levalbuterol (Xopenex 1.25MG/ 0.5ML Neb) 1.25 mg Q2H PRN INH 08/06/16 22:00 09/05/16 21:59 Fluticasone Propionate 2 sprays 2 sprays HS NA 08/06/16 22:45 09/05/16 22:44 08/06/16 23:04 2 SPRAYS Heparin Sodium/ Dextrose (Heparin 25,000 Unit/500ml D5W) 500 ml @ 30 mls/hr [id number] PRN IV 08/07/16 09:00 09/06/16 08:59 08/07/16 09:20 30 MLS/HR Oxycodone HCl (Roxicodone Immediate Rel Tab) 5 mg Q4H PRN PO 08/07/16 11:30 08/21/16 11:29 08/07/16 11:33 5 MG Non-Formulary Medication (Non-Formulary Patient'S Own Med) 1 ea Q12 PRN PO 08/07/16 12:45 09/06/16 12:44 Objective Vital Signs Date Time Temp Pulse Resp B/P Pulse Ox O2 Delivery O2 Flow Rate FiO2 08/07/16 16:00 Room Air 08/07/16 12:00 Room Air 08/07/16 11:50 36.7 80 18 115/73 93 08/07/16 08:30 36.5 75 18 111/74 90 08/07/16 08:00 Room Air 08/07/16 04:13 36.6 81 18 104/68 92 Room Air 08/07/16 04:00 Room Air 08/07/16 00:01 97 Room Air 08/06/16 23:36 36.7 75 19 108/67 96 Room Air 08/06/16 22:02 36.7 74 18 133/86 97 Room Air 08/06/16 21:39 79 16 117/76 95 Room Air 08/06/16 19:24 74 18 113/75 94 Room Air Physical Exam General Appearance: WD/WN, no apparent distress Eyes: normal inspection, PERRL, EOMI ENT: normal ENT inspection, hearing grossly normal Neck: supple Respiratory/Chest: chest non-tender, lungs clear, normal breath sounds, no respiratory distress, no accessory muscle use Cardiovascular: regular rate, rhythm, no edema, no gallop, no JVD, no murmur Abdomen: normal bowel sounds, non tender, soft, no organomegaly Extremities: normal range of motion, + calf tenderness 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, no motor/sensory deficits, alert, normal mood/affect, oriented x 3 Skin: normal color, warm/dry, no rash Laboratory Results Last 24 Hours Test 08/06/16 21:23 08/06/16 21:51 08/07/16 05:30 08/07/16 13:14 Creatine Kinase MB Ratio Total Creatine Kinase 56 U/L 46 U/L 51 U/L Creatine Kinase MB < 0.5 ng/ml < 0.5 ng/ml < 0.5 ng/ml Troponin I < 0.015 ng/ml < 0.015 ng/ml < 0.015 ng/ml White Blood Count 5.21 K/uL Red Blood Count 4.38 M/uL Hemoglobin 13.7 g/dL Hematocrit 39.5 % Mean Corpuscular Volume 90.2 fL Mean Corpuscular Hemoglobin 31.3 pg Mean Corpuscular Hemoglobin Concent 34.7 g/dl Platelet Count 158 K/uL Mean Platelet Volume 9.1 fL Neutrophils (%) (Auto) 57.8 % Lymphocytes (%) (Auto) 31.5 % Monocytes (%) (Auto) 8.4 % Eosinophils (%) (Auto) 2.1 % Basophils (%) (Auto) 0.2 % Neutrophils # (Auto) 3.01 K/uL Lymphocytes # (Auto) 1.64 K/uL Monocytes # (Auto) 0.44 K/uL Eosinophils # (Auto) 0.11 K/uL Basophils # (Auto) 0.01 K/uL RDW Standard Deviation 42.9 fL RDW Coefficient of Variation 13.0 % Immature Granulocyte % (Auto) 0.0 % Immature Granulocyte # (Auto) 0.00 K/uL Prothrombin Time 10.7 SECONDS Prothromb Time International Ratio 1.0 Activated Partial Thromboplast Time 29.2 SECONDS Partial Thromboplastin Ratio 1.1 Sodium Level 143 mmol/L Potassium Level 3.9 mmol/L Chloride Level 107 mmol/L Carbon Dioxide Level 27 mmol/L Anion Gap 9.0 mmol/L Blood Urea Nitrogen 16 mg/dl Creatinine 0.89 mg/dl Est Creatinine Clear Calc Drug Dose 143.0 ml/min Estimated GFR () 117.2 Estimated GFR (Non- 101.1 BUN/Creatinine Ratio 17.6 Random Glucose 78 mg/dl Calcium Level 8.0 mg/dl Magnesium Level 2.3 mg/dl Total Bilirubin 0.4 mg/dl Direct Bilirubin 0.1 mg/dl Aspartate Amino Transf (AST/SGOT) 23 U/L Alanine Aminotransferase (ALT/SGPT) 37 U/L Alkaline Phosphatase 89 U/L Total Protein 6.1 gm/dl Albumin 3.4 gm/dl Test 08/07/16 15:30 Activated Partial Thromboplast Time 64.6 SECONDS Partial Thromboplastin Ratio 2.5 Assessment and Plan 50 years man with PMHx of idiopathic pulmonary fibrosis with 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 was on coumadin for that until he had hemoptysis and since then he stopped Coumadin, did not take ASA or plavix. presented with left lower Ext pain. Numerous left-sided pulmonary emboli/left lower extremity DVT involving the popliteal vein F/U hypercoagulable workup, consult pulmonology appreciated He was started on Heparin drip thoracic surgery appreciated bed rest for now to avoid detachment of any further DVT (very low lung reserve) Hx of hemoptysis; at that time he was on coumadin, possibly bronchitis related, but also could be secondary to his underlying lung pathology but will monitor on heparin drip, if no hemoptysis then he can be transitioned to oral AC Hypothyroidism continue levothyroxine sodium 50 g by mouth daily. Insomnia--continue nortriptyline 50 mg by mouth at bedtime. Allergy--change Nasonex nasal spray to Flonase 2 sprays each nostril daily for formulary interchange. We'll hold on Zyrtec-D ER at this time.
--- NOTE | 2016-08-07 19:01 | DIAGNOSTIC IMAGING REPORT ---
ABDOMEN COMPLETE (US) CLINICAL HISTORY: Unexplained pulmonary embolism. COMPARISON STUDY: No previous studies for comparison. FINDINGS: No focal hepatic masses were visualized. The gallbladder appears sonographically normal. The pancreas is nonvisualized. There is no ductal dilatation. The common bile duct measures 3 mm. The spleen measured 10.4 cm. Multiple granulomatous calcifications are visualized. The right kidney measured 10.1 cm in length. The left kidney measures 11.2 cm in length. There is no hydronephrosis. No renal masses are visualized. There are no abnormalities of the IVC or aorta. IMPRESSION: Nondiagnostic evaluation of the pancreas. Otherwise unremarkable abdominal ultrasound Electronically signed by: Pepe Boateng M.D. 08/07/2016 6:59 PM Dictated Date/Time: 08/07/2016 6:57 PM
[2016-08-07 19:47] VITALS: BP 114/77; PULSE 72; TEMP 36.9; O2SAT 96
[2016-08-07] MEDS: NORTRIPTYLINE HCL 25 MG CAP PO SCH (20:10)
[2016-08-07] MEDS: FLUTICASONE PROPIONATE NA SPR 16 GM BTL SCH (20:10)
[2016-08-07] MEDS: ZYRTEC D PO PRN (20:11)
[2016-08-07 23:21] VITALS: BP 106/70; PULSE 89; TEMP 37.1; O2SAT 92
[2016-08-08] VITALS (7 sets, daily range): BP systolic 106–164; BP diastolic 71–84; PULSE 65–87; TEMP 36.5–36.8; O2SAT 92–95
[2016-08-08] MEDS: HEPARIN 25,000 UNIT/500ML D5W 500 ML IV PRN ×2 (01:38→17:36)
--- NOTE | 2016-08-08 01:45 | SURGICAL CONSULTATION ---
DATE OF CONSULTATION: 08/07/2016 REASON FOR CONSULTATION: Evaluate in a patient with occlusion of right pulmonary artery, who now has new left pulmonary artery emboli. HISTORY OF PRESENT ILLNESS: A very nice 50-year-old male who I actually met last year. 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 He was treated at [facility] in 1998 with a stent to his right pulmonary artery. This was ballooned open a few years later when it stenosed. It has been occluded for a few years. The patient also has superior vena caval syndrome which he is compensated for nicely with collaterals. When I saw him in October, the patient had some hemoptysis. He underwent a bronchoscopy by Dr. Temo Cortes and saw the bleeding was coming from the right upper lobe. I was asked to evaluate him at that time to see whether or not he required anticoagulation. It was my thought at that time he did not. His right main pulmonary artery had been occluded for some time as had his vena cava. For this reason, his anticoagulation was withheld. The patient did well until he developed pain in his leg. His left lower leg hurt him and he was found to have thrombosis of the left popliteal vein. He had no long period of immobility or car rides or plane rides. He suffered no trauma. At any rate, a computed tomographic angiogram was done which showed that he had significant pulmonary emboli to his left lung. He has no blood flow in the right pulmonary artery. He has had very little in the way of changes in the last several months radiographically other than the new pulmonary emboli. He has now been put on heparin drip. He has no hemoptysis, although it was significant last year. I have been asked to comment on this from a thoracic surgery standpoint. PAST MEDICAL HISTORY: 1. Fibrosing mediastinitis. 2. 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 3. Occlusion of right main pulmonary artery secondary to #1. 4. Presumptive history of histoplasmosis in the past. 5. Acute deep vein thrombosis of pulmonary emboli. 6. History of hemoptysis. 7. Hypothyroidism and history of melanoma. PAST SURGICAL HISTORY: 1. Stenting and then balloon angioplasty of right pulmonary artery stent. 2. Bronchoscopy. 3. Excision of melanoma. 4. Herniorrhaphy. 5. Shoulder surgery. MEDICATIONS: 1. Ventolin inhaler. 2. Symbicort. 3. Zyrtec. 4. Synthroid. 5. Pamelor. 6. Oxycodone. SOCIAL HISTORY: The patient lives with his . He is employed and aiding the disabled. He has a young son. He does not smoke cigarettes or use alcohol. ALLERGIES: No known drug allergies. FAMILY MEDICAL HISTORY: Mother has atrial fibrillation, but no coronary artery disease. His son is healthy. There is no one in family who has had any hypercoagulable problems or bleeding problems. REVIEW OF SYSTEMS: He has actually done well at home until this occurred. He denies any weight changes. He has had no night sweats or productive cough. It should be noted that patient is a of [employer] and was also in the [employer]. He does not recall any exposures to any pathogens at that time. He had no epistaxis recently. He denies any changes in his vision or hearing. He has had no throat pain. He denied shortness of breath, although he has a history, that is chronic, of shortness of breath which is not surprising given the fact that his right pulmonary artery is occluded. He denies fevers or chills. He has had no nausea, vomiting or diarrhea. He has had no skin breakdown. He has really had no swelling. He did have pain in his left leg as stated. PHYSICAL EXAMINATION: GENERAL: This is a well-developed, well-nourished male who appears his stated age of 50. He stands 5 feet 10 inches tall and weighs 220 pounds. He is awake, alert and oriented. HEENT: His extraocular movements are intact. His pupils are equal, round and reactive. His sclerae are anicteric. He has no nasal labial flattening. He has no oral mucosal lesions. NECK: Thick but supple. He really does not have distention of his neck veins. HEART: He has a regular rate and rhythm of his heart with no rub. LYMPH: He has no supraclavicular or cervical lymphadenopathy or axillary adenopathy. LUNGS: Really fairly clear, although I think his breath sounds are decreased on the right. ABDOMEN: Soft, nontender. EXTREMITIES: He does have tenderness in his left calf on dorsiflexion. He has no erythema, no fluctuance. He has got excellent peripheral pulses. He has no peripheral edema and no joint effusions. NEUROLOGIC: Completely intact. ASSESSMENT AND PLAN: At this point, I would seriously consider offering this man a right pneumonectomy. He is chronically short of breath and the problem is that he had fairly significant hemoptysis last year and there was not a mass per se, but its appearance, just mucosal irritation. I am not sure that is something we could even stop with an embolization. At any rate, the best way to proceed at this point would probably be to proceed with anticoagulation, but if he developed hemoptysis, then I really would consider doing a midline sternotomy and as I think it would be much easier to get to the pulmonary veins as well as the main pulmonary artery proximal to the stent and his bronchus. We may end up having to also offer him a limited thoracotomy or a thoracoscopy in order to remove the lung that may be attached in the chest. At this point, he is being anticoagulated with heparin, which I agree with. We would want to give him time on anticoagulation and let him have resolution of his left pulmonary artery thrombi. We will see how he looks with anticoagulation in the next few days.
[2016-08-08] MEDS: NSS + 20MEQ KCL 1000ML 1,000 ML IV SCH ×3 (04:26→22:30)
[2016-08-08] MEDS: LEVOTHYROXINE 50 MCG TAB PO SCH (06:06)
[2016-08-08 07:02] LABS: BASO % 0.5 %; BASO ABS # 0.03 K/uL (0-0.2); COMPLETE YES; EOS % 1.2 %; HEMATOCRIT 38.6 % (42-52); IG% 0.2 %; LYMPH % 31.1 %; LYMPH ABS # 1.82 K/uL (1.2-3.4); MEAN CORPUSCULAR HEMOGLOBIN 31.4 pg (25-34); MEAN CORPUSCULAR HGB CONC 34.5 g/dl (32-36); MEAN PLATELET VOLUME 8.8 fL (7.4-10.4); MONO % 8.9 %; NEUT % 58.1 %; PLATELET COUNT 139 K/uL (130-400); RED BLOOD COUNT 4.24 M/uL (4.7-6.1); WHITE BLOOD COUNT 5.85 K/uL (4.8-10.8)
[2016-08-08 07:23] LABS: PARTIAL THROMBOPLASTIN RATIO 2.4; PROTHROMBIN TIME (PATIENT) 10.7 SECONDS (9.0-12.0)
[2016-08-08 07:33] LABS: BUN/CREATININE RATIO 16.5 (10-20); CALCIUM 7.9 mg/dl (8.5-10.1); CREATININE 0.91 mg/dl (0.60-1.40); MAGNESIUM 2.4 mg/dl (1.8-2.4)
[2016-08-08] MEDS: ZYRTEC D PO PRN ×2 (07:42→20:31)
[2016-08-08] MEDS: BUDESONIDE/FORMOTEROL FUMARATE 160/4.5 60 PUFFS/INHALER INH SCH ×2 (07:42→20:31)
[2016-08-08] MEDS: OXYCODONE HCL IR 5 MG TAB (IMMEDIATE RELEASE) PO PRN ×3 (07:44→20:30)
--- NOTE | 2016-08-08 14:50 | PULMONARY CONSULTATION ---
DATE OF CONSULTATION: 08/08/2016 REASON FOR CONSULTATION: Multiple pulmonary emboli in a patient with fibrosing mediastinitis and occluded right pulmonary artery stenting and past history of hemoptysis. HISTORY OF PRESENT ILLNESS: A 50-year-old white male with complex medical history well outlined by Dr. Woodward in his pulmonary consultation dated 08/07/2016. The patient has had a history of fibrosing mediastinitis, presumably from chronic histoplasmosis (no tissue confirmatory diagnosis) and several years ago had the right main pulmonary artery stented by Dr. Delfino Pena, an interventional radiologist at [facility] in addition with attempts at angioplasty of the superior vena cava. The latter was ineffective and the SVC has been occluded for many years with collateralization and symptoms of chronic SVC syndrome. The patient has also had chronic pain, presumably from the fibrosing mediastinitis and has been on chronic narcotics for this. In October 2015, he presented with hemoptysis 1-2 teaspoons of dark colored blood while anticoagulated. His anticoagulation was discontinued at that time. He did undergo bronchoscopic evaluation (see my bronchoscopic note). There was some old dried blood from the right upper lobe bronchus noted. Cultures were negative and no endobronchial lesions were seen. His anticoagulation was, as stated earlier, discontinued and there was no evidence nor has there ever been evidence of deep venous thrombosis involving the deep venous system of either lower extremity or the inferior vena cava in the past. The anticoagulant therapy previously had been to try to prevent occlusion of the stent but that stent by numerous CT angiograms done over the past several years, has shown chronic occlusion and in fact a ventilation/perfusion lung scan done previously had shown, on 11/04/2015, essentially no perfusion of the right lung with minimal radiotracer activity within the right lung. There was also diminished ventilation to the right lung when compared to the left at that time. The patient 1 week prior to this admission had developed unprovoked swelling of the left lower extremity and in fact without an obvious injury or additional predisposing condition. An ultrasound of both the right and left lower extremity done on 08/06/2016 after being hospitalized, showed that there was no evidence of deep venous thrombosis within the right lower extremity, but the left showed deep venous thrombosis within the left popliteal vein and superficial thrombus within a vein which drains into the left popliteal vein. Ultrasound of the abdominal region showed no evidence of significant pathology. CT angiogram of the chest done on 08/06/2016, compared to 07/30/2015 clearly shows interval development of numerous left-sided pulmonary emboli with no change in the appearance of the occluded right pulmonary arterial stent but slight increase in nonspecific ground-glass opacities and interstitial thickening within the right lung was noted. Chronic SVC occlusion with associated collateral formation was noted again and dilated central pulmonary arteries, suggesting pulmonary arterial hypertension noted. The findings were suggestive of stable fibrosing mediastinitis. The patient has had no hemoptysis since discontinuance of his anticoagulation in October 2015, has minimal cough and the chest pain he currently reports is more like the chronic pain he has, rather than left-sided pleuritic pain. He was mildly dyspneic with exertion when admitted, compared to the way he normally feels. I was asked by Dr. Hartley to render my opinion after the family asked that I also be involved in his care and evaluation during this admission. For details of past medical history, medications, family and social history, I refer you to current past record, Dr. Woodward's notation and my previous pulmonary consultation note. OVERALL ASSESSMENT: I had a lengthy discussion with Dr. Hartley as well as Dr. Serna concerning Kam's presentation. I am very concerned about a patient who has basically undergone an auto-pneumonectomy from his disease process and is living on the function of 1 lung and now has had multiple pulmonary emboli to that left lung. This represents a life threatening process and I would be in favor of inserting an IVC filter with full anticoagulation. He has had 1 bout of hemoptysis that was not life threatening when anticoagulated and believes that he needs to be protected from future pulmonary emboli. I think his anticoagulant therapy duration would need to be indefinite rather than 3- to 6-month period. Certainly a decision on a retrievable IVC filter has its pros and cons. There is certainly something thrombogenic associated with an IVC filter placement and that is a concern as it is a concern that leaving him unprotected would potentially risk his life in the near future. Dr. Hartley and I discussed the ramifications of thrombogenesis involving an IVC filter when patient already has an SVC occlusion with collateralization and with full thrombogenesis attributed to an IVC filter of the inferior vena cava would put patient at risk for reducing certainly venous return to the heart and potentially alter his hemodynamics. I am not aware that having SVC syndrome and his underlying disease process places him at increased risk for thrombogenesis of an IVC filter, compared to a population of patients who develop thrombogenesis and pulmonary emboli from other disease processes. In any event, I believe a pneumonectomy in a patient with fibrosing mediastinitis would only be a life salvage procedure for a life threatening hemoptysis, even if a midsternal approach would be safer than a thoracotomy approach, etc., should that become necessary. We will discuss further with Dr. Orquidea Quick, but right now would leave the patient on IV heparin before dosing with Coumadin until a decision is made on the placement of an IVC filter.
--- NOTE | 2016-08-08 15:18 | Progress Note ---
Subjective Date of Service: Aug 08, 2016. Subjective Pt evaluation today including: conversation w/ patient, conversation w/ family , conversation w/ webmethods consultant Pt is feeling improved. No SOB with ambulation to the bathroom. No chest pain. LE pain is stable. Tolerating PO. Pt denies fever, abd pain, n/v/c/d, LE swelling. ROS as noted above, otherwise neg. Problem List Medical Problems: (1) Hemoptysis Status: Acute (2) Hemoptysis Status: Acute (3) Leg DVT (deep venous thromboembolism), acute Status: Acute (4) Superior vena cava syndrome Status: Acute Objective Vital Signs Date Time Temp Pulse Resp B/P Pulse Ox O2 Delivery O2 Flow Rate FiO2 08/08/16 12:45 36.7 86 18 116/77 93 Room Air 08/08/16 12:00 Room Air 08/08/16 08:00 Room Air 08/08/16 07:58 36.5 80 18 108/71 93 Room Air 08/08/16 04:22 36.8 82 18 106/72 92 Room Air 08/08/16 04:00 Room Air 08/08/16 00:01 Room Air 08/07/16 23:21 37.1 89 18 106/70 92 Room Air 08/07/16 20:00 Room Air 08/07/16 19:47 36.9 72 18 114/77 96 Room Air 08/07/16 16:00 Room Air Physical Exam General Appearance: WD/WN, no apparent distress Respiratory/Chest: normal breath sounds, no respiratory distress Cardiovascular: regular rate, rhythm, no edema Abdomen: non tender, soft Extremities: no pedal edema Neurologic/Psychiatric: alert, oriented x 3 Skin: normal color, warm/dry Laboratory Results Last 24 Hours Test 08/07/16 15:30 08/08/16 06:45 08/08/16 11:10 Activated Partial Thromboplast Time 64.6 SECONDS 62.9 SECONDS Partial Thromboplastin Ratio 2.5 2.4 White Blood Count 5.85 K/uL Red Blood Count 4.24 M/uL Hemoglobin 13.3 g/dL Hematocrit 38.6 % Mean Corpuscular Volume 91.0 fL Mean Corpuscular Hemoglobin 31.4 pg Mean Corpuscular Hemoglobin Concent 34.5 g/dl Platelet Count 139 K/uL Mean Platelet Volume 8.8 fL Neutrophils (%) (Auto) 58.1 % Lymphocytes (%) (Auto) 31.1 % Monocytes (%) (Auto) 8.9 % Eosinophils (%) (Auto) 1.2 % Basophils (%) (Auto) 0.5 % Neutrophils # (Auto) 3.40 K/uL Lymphocytes # (Auto) 1.82 K/uL Monocytes # (Auto) 0.52 K/uL Eosinophils # (Auto) 0.07 K/uL Basophils # (Auto) 0.03 K/uL RDW Standard Deviation 43.7 fL RDW Coefficient of Variation 13.2 % Immature Granulocyte % (Auto) 0.2 % Immature Granulocyte # (Auto) 0.01 K/uL Prothrombin Time 10.7 SECONDS Prothromb Time International Ratio 1.0 Sodium Level 144 mmol/L Potassium Level 4.0 mmol/L Chloride Level 110 mmol/L Carbon Dioxide Level 24 mmol/L Anion Gap 10.0 mmol/L Blood Urea Nitrogen 15 mg/dl Creatinine 0.91 mg/dl Est Creatinine Clear Calc Drug Dose 117.4 ml/min Estimated GFR () 115.1 Estimated GFR (Non- 99.3 BUN/Creatinine Ratio 16.5 Random Glucose 89 mg/dl Calcium Level 7.9 mg/dl Magnesium Level 2.4 mg/dl Total Bilirubin 0.5 mg/dl Direct Bilirubin 0.2 mg/dl Aspartate Amino Transf (AST/SGOT) 21 U/L Alanine Aminotransferase (ALT/SGPT) 39 U/L Alkaline Phosphatase 90 U/L Total Protein 6.0 gm/dl Albumin 3.4 gm/dl Assessment and Plan 50 years man with PMHx of idiopathic pulmonary fibrosis with 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 was on coumadin for that until he had hemoptysis and since then he stopped Coumadin, did not take ASA or plavix. presented with LLE pain. Numerous left-sided pulmonary emboli/left lower extremity DVT involving the popliteal vein F/U hypercoagulable workup, Heparin gtt, likely starting coumadin once procedure status is more definite CT surg and pulm have differing opinions on further management. ? pneumonectomy vs IVC filter, will continue to follow Hx of hemoptysis; at that time he was on coumadin, possibly bronchitis related, but also could be secondary to his underlying lung pathology but will monitor on heparin drip, if no hemoptysis then he can be transitioned to oral AC Hypothyroidism continue levothyroxine sodium 50 g by mouth daily. Insomnia--continue nortriptyline 50 mg by mouth at bedtime. Allergy--change Nasonex nasal spray to Flonase 2 sprays each nostril daily for formulary interchange. We'll hold on Zyrtec-D ER at this time.
--- NOTE | 2016-08-08 16:32 | Hematology/Oncology Prog Note ---
Hematology/Onc Progress Note Date of Service Aug 08, 2016. Diagnoses Fibrosing mediastinitis, DVT/PE Medications Medications Administered Medications (Trade) Dose Ordered Sig/Brunilda Route Start Time Stop Time Status Last Admin Dose Admin Potassium Chloride/Sodium Chloride (Nss + 20meq KCl 1000ml) 1,000 ml @ 100 mls/hr Q10H IV 08/06/16 22:30 09/05/16 22:29 08/08/16 14:10 100 MLS/HR Budesonide/ Formoterol Fumarate (Symbicort 160/ 4.5 Inh) 1 puffs BID INH 08/07/16 09:00 09/06/16 08:59 08/08/16 07:42 1 PUFFS Levothyroxine Sodium (Synthroid Tab) 50 mcg DAILYBB PO 08/07/16 06:00 09/06/16 05:59 08/08/16 06:06 50 MCG Nortriptyline HCl (Pamelor Cap) 50 mg HS PO 08/06/16 22:30 09/05/16 22:29 08/07/16 20:10 50 MG Fluticasone Propionate (Flonase Nasal Drury) 2 sprays HS NA 08/06/16 22:45 09/05/16 22:44 08/07/16 20:10 2 SPRAYS Perflutren Lipid Microsphere 2 ml 2 ml ONE ONCE IV 08/07/16 08:03 08/07/16 08:04 DC 08/07/16 08:03 2 ML Heparin Sodium (Porcine) 7000 unit/Syringe 7 ml @ 10 mls/min NOW ONCE IV 08/07/16 09:00 08/07/16 09:01 DC 08/07/16 09:22 10 MLS/MIN Heparin Sodium/ Dextrose (Heparin 25,000 Unit/500ml D5W) 500 ml @ 30 mls/hr [id number] PRN IV 08/07/16 09:00 09/06/16 08:59 08/08/16 01:38 30 MLS/HR Oxycodone HCl (Roxicodone Immediate Rel Tab) 5 mg Q4H PRN PO 08/07/16 11:30 08/21/16 11:29 08/08/16 14:09 5 MG Non-Formulary Medication (Non-Formulary Patient'S Own Med) 1 ea Q12 PRN PO 08/07/16 12:45 09/06/16 12:44 08/08/16 07:42 1 EA Subjective Mr. Bartholomew is doing well today. He still has some soreness in his left calf but this is improving. His breathing is stable and he denies any bleeding, hemoptysis, or pain. Review of Systems: Constitutional: No chills, No fever Eyes: No worsening of vision ENT: No sore throat, No unusual epistaxis Respiratory: No cough, No shortness of breath Cardiovascular: No chest pain, No palpitations Abdomen: No GI bleeding, No nausea, No pain, No vomiting Musculoskeletal: + calf pain, No joint pain, No muscle pain, No problem reported, No see HPI, No swelling Male : No dysuria, No hematuria Neurologic: No numbness/tingling, No weakness Heme: No abnormal bleeding/bruising, No clotting problems Skin: No bleeding, No rash Vital Signs Vital Signs Past 12 Hours Date Time Temp Pulse Resp B/P Pulse Ox O2 Delivery O2 Flow Rate FiO2 08/08/16 15:47 36.5 87 18 113/72 95 Room Air 08/08/16 12:45 36.7 86 18 116/77 93 Room Air 08/08/16 12:00 Room Air 08/08/16 08:00 Room Air 08/08/16 07:58 36.5 80 18 108/71 93 Room Air 08/08/16 04:22 36.8 82 18 106/72 92 Room Air Physical Exam Constitutional: General Apperance: heathly-appearing Level of Distress: NAD Psychiatric: Mental Status: active & alert Orientation: oriented except where noted Eyes: EOM: EOMI ENMT: pharynx normal Neck: supple Lungs: Respiratory Effort: no dyspnea Auscuitation: CTA except as noted, decreased breath sounds (mildly diminished on right) Cardiovascular: Heart Auscultation: RRR, no murmurs Abdomen: Inspection & Palpation: soft, non-distended, no tenderness, guarding & rebound Extremities: no edema, no palpable cord, pertinent finding (mildly TTP at left popliteal fossa) Laboratory Last 24 Hours Test 08/08/16 06:45 08/08/16 11:10 White Blood Count 5.85 K/uL Red Blood Count 4.24 M/uL Hemoglobin 13.3 g/dL Hematocrit 38.6 % Mean Corpuscular Volume 91.0 fL Mean Corpuscular Hemoglobin 31.4 pg Mean Corpuscular Hemoglobin Concent 34.5 g/dl Platelet Count 139 K/uL Mean Platelet Volume 8.8 fL Neutrophils (%) (Auto) 58.1 % Lymphocytes (%) (Auto) 31.1 % Monocytes (%) (Auto) 8.9 % Eosinophils (%) (Auto) 1.2 % Basophils (%) (Auto) 0.5 % Neutrophils # (Auto) 3.40 K/uL Lymphocytes # (Auto) 1.82 K/uL Monocytes # (Auto) 0.52 K/uL Eosinophils # (Auto) 0.07 K/uL Basophils # (Auto) 0.03 K/uL RDW Standard Deviation 43.7 fL RDW Coefficient of Variation 13.2 % Immature Granulocyte % (Auto) 0.2 % Immature Granulocyte # (Auto) 0.01 K/uL Prothrombin Time 10.7 SECONDS Prothromb Time International Ratio 1.0 Activated Partial Thromboplast Time 62.9 SECONDS Partial Thromboplastin Ratio 2.4 Sodium Level 144 mmol/L Potassium Level 4.0 mmol/L Chloride Level 110 mmol/L Carbon Dioxide Level 24 mmol/L Anion Gap 10.0 mmol/L Blood Urea Nitrogen 15 mg/dl Creatinine 0.91 mg/dl Est Creatinine Clear Calc Drug Dose 117.4 ml/min Estimated GFR () 115.1 Estimated GFR (Non- 99.3 BUN/Creatinine Ratio 16.5 Random Glucose 89 mg/dl Calcium Level 7.9 mg/dl Magnesium Level 2.4 mg/dl Total Bilirubin 0.5 mg/dl Direct Bilirubin 0.2 mg/dl Aspartate Amino Transf (AST/SGOT) 21 U/L Alanine Aminotransferase (ALT/SGPT) 39 U/L Alkaline Phosphatase 90 U/L Total Protein 6.0 gm/dl Albumin 3.4 gm/dl Assessment & Plan Mr. Bartholomew has a very complicated situation that I discussed at length with Dr. Cortes, his mailroom clerk. The concern is that he is effectively operating with one lung, due to essentially zero perfusion of his right lung seen on a recent perfusion scan. As a result, Dr. Cortes is very concerned that a subsequent PE, given the left-sided PEs he's already had, would be a potentially fatal event. Thus, he would favor placing an IVC filter in addition to full anticoagulation. I am generally reticent to place IVC filters because they become thrombogenic risks themselves if left in place too long. However, I can understand Dr. Cortes's concerns and think that a filter, in the context of full anticoagulation and with a plan to remove the filter at some point in the future, would be reasonable. Prior to removing the filter, he would need imaging of his leg, to assess for resolution of his DVT, and his IVC, to ensure thrombus has not formed on the proximal side of the filter that could be dislodged by retrieval. This could be done as an outpatient, likely after 3 months or so of full anticoagulation. He is currently on heparin with a plan to transition to coumadin once his plan of care is agreed upon. I will defer to Drs. Cortes and Naeem about the issue regarding pneumonectomy, but would tend to agree with Dr. Cortes that the interruption in full anticoagulation required for such a surgery would be worrisome given his recent VTE. Generally, I would not consider stopping anticoagulation for at least 3 months after a VTE, as that is the window of highest risk of recurrent or progressive clot, unless there is a hard contraindication such as a life-threatening hemorrhage. If the degree of hemoptysis he has experienced is small, the risk of pulmonary hemorrhage from full AC may be outweighed by the risk of extension of his VTE due to inadequate anticoagulation. His situation is quite complex, with a variety of competing risk factors, and ultimately we may need to approach the patient with both options and let him decide on the risk profile he is most comfortable accepting.
--- NOTE | 2016-08-08 20:29 | SURGERY PROGRESS NOTE ---
DATE: 08/08/2016 Mr. Bartholomew was seen today. I have discussed his case with Dr. Cortes today. We will anticoagulate him. I am hopeful that he does not develop hemoptysis. We had a discussion about whether to place an inferior vena cava filter. I will discuss his case with Dr. Jarvis Serna and we will make a decision about whether to offer him one.
[2016-08-08] MEDS: FLUTICASONE PROPIONATE NA SPR 16 GM BTL SCH (20:30)
[2016-08-08] MEDS: NORTRIPTYLINE HCL 25 MG CAP PO SCH (21:20)
[2016-08-09 04:20] VITALS: BP 114/74; PULSE 80; TEMP 36.7; O2SAT 91
[2016-08-09] MEDS: LEVOTHYROXINE 50 MCG TAB PO SCH (06:17)
[2016-08-09 07:32] LABS: BASO % 0.3 %; BASO ABS # 0.02 K/uL (0-0.2); COMPLETE YES; EOS % 1.8 %; IG% 0.3 %; LYMPH % 28.7 %; LYMPH ABS # 1.93 K/uL (1.2-3.4); MEAN CELL VOLUME 91.3 fL (80-100); MEAN CORPUSCULAR HEMOGLOBIN 31.4 pg (25-34); MEAN CORPUSCULAR HGB CONC 34.4 g/dl (32-36); MONO % 9.4 %; NEUT % 59.5 %; PLATELET COUNT 141 K/uL (130-400); RED BLOOD COUNT 4.27 M/uL (4.7-6.1); WHITE BLOOD COUNT 6.73 K/uL (4.8-10.8)
[2016-08-09 07:34] VITALS: BP 118/77; PULSE 76; TEMP 36.8; O2SAT 94
[2016-08-09 07:50] LABS: PARTIAL THROMBOPLASTIN RATIO 2.4; PROTHROMBIN TIME (PATIENT) 10.9 SECONDS (9.0-12.0)
[2016-08-09] MEDS: BUDESONIDE/FORMOTEROL FUMARATE 160/4.5 60 PUFFS/INHALER INH SCH ×2 (08:00→20:19)
[2016-08-09] MEDS: ZYRTEC D PO PRN ×2 (08:00→20:19)
[2016-08-09 08:01] LABS: BUN/CREATININE RATIO 13.8 (10-20); CALCIUM 8.1 mg/dl (8.5-10.1); CREATININE 0.96 mg/dl (0.60-1.40); MAGNESIUM 2.1 mg/dl (1.8-2.4)
[2016-08-09] MEDS: OXYCODONE HCL IR 5 MG TAB (IMMEDIATE RELEASE) PO PRN ×2 (08:02→20:22)
--- NOTE | 2016-08-09 10:27 | HEME/ONC PROGRESS NOTE ---
DATE: 08/09/2016 DATE: 08/09/2016. DIAGNOSES: 1. Left lower extremity deep venous thrombosis. 2. Superior vena cava syndrome. 3. Hemoptysis. 4. Idiopathic pulmonary fibrosis with chronic obstruction of the right pulmonary artery status post stent. SUBJECTIVE: I had the pleasure of seeing Kam at bedside today. He appears to be clinically stable. His PTT well within therapeutic range on heparin. He voices no complaints or concerns today. Informally discussed Mr. Bartholomew's case with Dr. Iniguez. There are 2 clinical debates, one whether or not to place IVC and the other proceed with pneumonectomy. Nursing offers no overnight concerns. There has been no further bleeding issues since hospitalization. PHYSICAL EXAMINATION: GENERAL: He is in no acute distress. VITAL SIGNS: Temperature 36.8, pulse 76, respirations 22, blood pressure 118/77. SKIN: Without petechiae, rash or ecchymosis. HEAD, EYES, EARS, NOSE, AND THROAT: Oral mucosa without erythema or ulceration. NECK: Supple. HEART: Regular rate and rhythm. No clicks, rubs, murmurs or gallops. LUNGS: Diffuse crackles encompassing the right hemithorax. Left hemithorax clear to auscultation. ABDOMEN: Soft, nontender, nondistended. EXTREMITIES: No clubbing, cyanosis or edema. NEUROLOGIC EXAMINATION: Grossly intact. LABORATORY DATA: Again, PTT 61.3 seconds, WBC 6,730, hemoglobin 13.4, platelet count 141,000. Serum chemistries sodium 144, potassium 4, chloride 109, CO2 25, creatinine 0.96, BUN 13. IMPRESSION: 1. Lower extremity deep venous thrombosis. 2. Superior vena cava syndrome. 3. Hemoptysis. 4. Idiopathic pulmonary fibrosis. PLAN: Kam is progressing satisfactorily on current anticoagulant. PTT is in therapeutic range and he should be transitioned to oral anticoagulant. I have suggested oral direct thrombin inhibitor (Xarelto). Coumadin in this gentleman with fluctuations in therapeutic levels I think certainly increases his risk for recurrent thrombosis. I agree with Dr. Iniguez pertaining to indwelling IVC filter. IVC filters can potentially be thrombogenic and these devices even temporarily placed, pose risk in my opinion. I would proceed with oral transition to appropriate anticoagulant. I will leave the debate for or against pneumonectomy to Dr. Hartley and Dr. Cortes. Thank you very much for allowing us to participate in the care of this very pleasant gentleman. FITZ
--- NOTE | 2016-08-09 10:56 | Surgery Consultation ---
Consultation Date of Service Aug 09, 2016. (Dorcas Chapin, BEBETO) Chief Complaint LLE DVT, L lung PE (Dorcas Chapin PA-C) History of Present Illness The patient is a 50 year old male with hx of chronic SVC occlusion with collaterals, occlusion of R PA s/p stent which is also occluded, seen today in consultation for recommendations regarding IVC filter insertion d/t LLE DVT and L lung PE. Pt has complicated medical hx including mediastinal fibrosis, states he had been on anticoagulation in past d/t occlusion of his SVC stent, but was stopped for a period of time. Never had DVT or PE in past. States he is fairly active taking care of his children, but unable to exercise d/t only having single functioning lung. Denies trauma or recent major illness. Admits mild discomfort and edema of LLE. States he has had 2 episodes of hemoptysis in past, most recently last spring, both of which started and stopped spontaneously. Denies SOB, chest pain, fever, chills, abd pain, N/V, rest pain , claudication, other complaints. Imaging demonstrates multiple small L sided PE's, also LLE popliteal v DVT noted. Currently anticoagulated. (Dorcas Chapin, BEBETO) Vitals Vital Signs Past 12 Hours Date Time Temp Pulse Resp B/P Pulse Ox O2 Delivery O2 Flow Rate FiO2 08/09/16 08:00 Room Air 08/09/16 07:34 36.8 76 22 118/77 94 Room Air 08/09/16 04:20 36.7 80 18 114/74 91 Room Air 08/09/16 04:20 Room Air 08/09/16 00:01 Room Air 08/08/16 23:16 36.6 75 19 113/76 93 Room Air (Dorcas Chapin, KORYC) Allergies Coded Allergies: No Known Allergies (Verified , 10/29/15) Home Medications Scheduled Budesonide/Formoterol Fumarate (Symbicort 160/4.5 Inhaler ), 1 PUFFS INH BID Cetirizine/Pseudoephedrine (Zyrtec-D Er 5MG/120MG), 1 TABLET PO Q12H Levothyroxine Sodium (Synthroid), 50 MCG PO DAILY Mometasone Furoate (Nasonex), 2 SPRAYS FABIANO DAILY Nortriptyline (Pamelor), 50 MG PO HS Scheduled PRN Albuterol Inhaler (Ventolin Inhaler), 2 PUFFS INH QID PRN for ALLERGIC REACTION Oxycodone HCl (Oxycodone HCl), 5 MG PO Q4 PRN for Pain Problem List Medical Problems: (1) History of histoplasmosis (2) Hypothyroidism Nos (3) Idiopathic fibrosing mediastinitis (4) Migraine W Aura W/O Intract Mgrn W/O Status Migrainosus (5) Oth Pulmon Embolism/Infarct (6) Pulmonary emboli (7) Pulmonary hypertension associated with mediastinal fibrosis (Dorcas Chapin, KORYC) Surgical / Medical History Hx Cardiac Surgery: Yes (caths) Hx Abdominal Surgery: Yes (right inguinal hernia and mesh 06/2001) Hx Cancer Surgery: No Hx Thoracic Surgery: No Hx Orthopedic: No Hx Urinary Tract Surgery: No (Dorcas Chapin PA-C) Family History Cancer (Dorcas Chapin PA-C) Cancer (Jarvis Serna M.D.) Social History Smoking Status: Never Smoker Hx Tobacco Use In Past Year?: No Hx Alcohol Use - Type & Amnt: No Hx Substance Use -Type & Amnt: No (Dorcas Chapin, KORYC) Review of Systems Constitutional: No chills, No fever, No malaise Skin: No change in color Eyes: No visual changes ENMT: No sore throat Respiratory: + [place], + cough, + hemoptysis (in past), No short of breath Cardiovascular: + edema (mild lle), No chest pain, No intermittent claudication , No palpitations, No syncope Gastrointestinal: No abdominal pain, No nausea, No vomiting Neurologic: No dizziness, No headache, No lethargy, No numbness, No tingling ( Dorcas Chapin, PA-C) Physical Exam Constitutional: General Apperance: well-nourished, well-developed Level of Distress: NAD, chronically ill (mildly) Psychiatric: Mental Status: active & alert, normal mood, normal affect Orientation: oriented except where noted, to time, to place, to person Memory: recent memory normal, remote memory normal Head: normocephalic, atraumatic Eyes: EOM: EOMI ENMT: normal ENT inspection, hearing grossly normal Neck: supple, trachea midline Lungs: Respiratory effort: no dyspnea Auscultation: no rales/crackles, no rhonchi, decreased breath sounds Cardiovascular: Apical Impulse: not displaced Heart Auscultation: RRR, no rubs, no gallops Peripheral Pulses: Pulses: full and equal, in all extremities except if noted Bruits: none appreciated Carotid Pulse: normal on the left, normal on the right Brachial Pulses: normal on the left, normal on the right Radial Pulse: normal on the left, normal on the right Femoral Pulse: normal on the left, normal on the right Posterior Tibialis Pulse: decreased on the left, decreased on the right Dorsalis Pedis Pulse: decreased on the left, decreased on the right Abdomen: Bowel Sounds: normal Inspection & Palpation: soft, non-distended, no tenderness, guarding & rebound Musculoskeletal: normal strength (5/5 throughout), normal tone Extremities: Upper Right: no cyanosis, no varicosities, edema (trace) Upper Left: no cyanosis, no varicosities, no palpable cord, edema (trace) Lower Right: no cyanosis, no edema, no varicosities Lower Left: no cyanosis, no varicosities, no palpable cord, edema (trace) Neurologic: Cranial Nerves: grossly intact Sensation: grossly intact (Dorcas Chapin, KORYC) Assessment and Plan ASSESSMENT and PLAN: DVT LLE/ L lung PE Pt appears well compensated despite PE. Multiple small PE noted on CTA, LLE popliteal DVT. Pt with known SVC and R PA occlusion. After full discussion with Dr Serna and review of imaging, recommends anticoagulation tx. No definite indications for IVC filter insertion at this time. If pt develops further PE or decompensates, or is unable to undergo penitentiary anticoagulation, then IVC filter would be indicated. Discussed with pt and , they express understanding. (Dorcas Chapin, PAKieranC) Discussed with Dr Cortes. I do not think the risk of PE and a new DVT while he is adequately anticoagulated justifies the insertion of a IVC filter. If he rebleed from his lung or develops a new DVT on anticoagulation, then a filter wound be recommended. If there is a concern about the thrombus in the leg, would rescan him in the next 2 to 3 days for any propagation of clot while he is adequately anticoagulated. If there is then this would be a failed anticoagulation and wound deserve a filter. Patient was seen, examined, and chart reviewed. Agree with exam and treatment plan of the Vascular PA. Thank you very much for letting me participate in the care of this patient. (Jarvis Serna M.D.)
[2016-08-09] MEDS: HEPARIN 25,000 UNIT/500ML D5W 500 ML IV PRN (11:10)
[2016-08-09 11:26] VITALS: BP 113/73; PULSE 72; TEMP 36.6; O2SAT 91
--- NOTE | 2016-08-09 13:16 | Progress Note ---
Subjective Date of Service: Aug 09, 2016. Subjective Pt evaluation today including: conversation w/ patient, conversation w/ family Pt is stable. He and his went for a walk in the halls yesterday and he did develop SOB and LE pain towards the end. Not much of either while in bed. Pt denies fever, abd pain, n/v/c/d, LE swelling. Tolerating PO. ROS as noted above, otherwise neg. Problem List Medical Problems: (1) Hemoptysis Status: Acute (2) Hemoptysis Status: Acute (3) Leg DVT (deep venous thromboembolism), acute Status: Acute (4) Superior vena cava syndrome Status: Acute Objective Vital Signs Date Time Temp Pulse Resp B/P Pulse Ox O2 Delivery O2 Flow Rate FiO2 08/09/16 12:00 Room Air 08/09/16 11:26 36.6 72 20 113/73 91 Room Air 08/09/16 08:00 Room Air 08/09/16 07:34 36.8 76 22 118/77 94 Room Air 08/09/16 04:20 36.7 80 18 114/74 91 Room Air 08/09/16 04:20 Room Air 08/09/16 00:01 Room Air 08/08/16 23:16 36.6 75 19 113/76 93 Room Air 08/08/16 20:49 36.8 65 18 164/74 95 Room Air 08/08/16 20:00 Room Air 08/08/16 19:22 36.5 84 20 126/84 95 Room Air 08/08/16 16:00 Room Air 08/08/16 15:47 36.5 87 18 113/72 95 Room Air Physical Exam Comments: General Appearance: WD/WN, no apparent distress Respiratory/Chest: normal breath sounds, no respiratory distress Cardiovascular: regular rate, rhythm, no edema Abdomen: non tender, soft Extremities: no pedal edema Neurologic/Psychiatric: alert, oriented x 3 Skin: normal color, warm/dry Laboratory Results Last 24 Hours Test 08/09/16 07:05 White Blood Count 6.73 K/uL Red Blood Count 4.27 M/uL Hemoglobin 13.4 g/dL Hematocrit 39.0 % Mean Corpuscular Volume 91.3 fL Mean Corpuscular Hemoglobin 31.4 pg Mean Corpuscular Hemoglobin Concent 34.4 g/dl Platelet Count 141 K/uL Mean Platelet Volume 9.0 fL Neutrophils (%) (Auto) 59.5 % Lymphocytes (%) (Auto) 28.7 % Monocytes (%) (Auto) 9.4 % Eosinophils (%) (Auto) 1.8 % Basophils (%) (Auto) 0.3 % Neutrophils # (Auto) 4.01 K/uL Lymphocytes # (Auto) 1.93 K/uL Monocytes # (Auto) 0.63 K/uL Eosinophils # (Auto) 0.12 K/uL Basophils # (Auto) 0.02 K/uL RDW Standard Deviation 43.9 fL RDW Coefficient of Variation 13.3 % Immature Granulocyte % (Auto) 0.3 % Immature Granulocyte # (Auto) 0.02 K/uL Prothrombin Time 10.9 SECONDS Prothromb Time International Ratio 1.0 Activated Partial Thromboplast Time 61.3 SECONDS Partial Thromboplastin Ratio 2.4 Sodium Level 144 mmol/L Potassium Level 4.0 mmol/L Chloride Level 109 mmol/L Carbon Dioxide Level 25 mmol/L Anion Gap 10.0 mmol/L Blood Urea Nitrogen 13 mg/dl Creatinine 0.96 mg/dl Est Creatinine Clear Calc Drug Dose 111.5 ml/min Estimated GFR () 107.9 Estimated GFR (Non- 93.1 BUN/Creatinine Ratio 13.8 Random Glucose 77 mg/dl Calcium Level 8.1 mg/dl Magnesium Level 2.1 mg/dl Total Bilirubin 0.5 mg/dl Direct Bilirubin 0.2 mg/dl Aspartate Amino Transf (AST/SGOT) 26 U/L Alanine Aminotransferase (ALT/SGPT) 39 U/L Alkaline Phosphatase 94 U/L Total Protein 6.0 gm/dl Albumin 3.3 gm/dl Assessment and Plan 50 years man with PMHx of idiopathic pulmonary fibrosis with 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 was on coumadin for that until he had hemoptysis and since then he stopped Coumadin, did not take ASA or plavix. presented with LLE pain. Numerous left-sided pulmonary emboli/left lower extremity DVT involving the popliteal vein F/U hypercoagulable workup Heparin gtt, likely starting coumadin once procedure status is more definite CT surg and pulm have differing opinions on further management. ? pneumonectomy vs IVC filter, will continue to follow Vasc surg does not recommend IVC at this time Hx of hemoptysis; at that time he was on coumadin, possibly bronchitis related, but also could be secondary to his underlying lung pathology but will monitor on heparin drip, if no hemoptysis then he can be transitioned to oral anticoag Hypothyroidism continue levothyroxine sodium 50 g by mouth daily. Insomnia--continue nortriptyline 50 mg by mouth at bedtime. Allergy--change Nasonex nasal spray to Flonase 2 sprays each nostril daily for formulary interchange. We'll hold on Zyrtec-D ER at this time.
[2016-08-09 15:35] VITALS: BP 104/67; PULSE 86; TEMP 36.6; O2SAT 95
--- NOTE | 2016-08-09 19:58 | SURGERY PROGRESS NOTE ---
DATE: 08/09/2016 I had a long talk with Kam and his at the bedside. I discussed his case with Dr. Temo Cortes, Dr. Jarvis Serna as well as Dr. Kvng Iniguez. I also discussed this with Dr Peoples. We are going to hold off on the vena cava filter. He is going to require anticoagulation. We are going to repeat a CT scan in about a month. My feeling is that he is probably going to require a pneumonectomy because I feel that he is probably going to bleed again. I have discussed this with the patient, his and Dr. Cortes in detail. Otherwise, I think he looks good. He is walking better. I think he could be discharged home when his anticoagulation issues are finalized. FITZ
[2016-08-09 20:16] VITALS: BP 120/77; PULSE 85; TEMP 36.5; O2SAT 93
[2016-08-09] MEDS: NORTRIPTYLINE HCL 25 MG CAP PO SCH (20:18)
[2016-08-09] MEDS: FLUTICASONE PROPIONATE NA SPR 16 GM BTL SCH (20:19)
[2016-08-09 23:02] VITALS: BP 123/78; PULSE 86; TEMP 37; O2SAT 94
[2016-08-10 00:01] VITALS: O2SAT 94
[2016-08-10 03:42] VITALS: BP 119/78; PULSE 84; TEMP 36.8; O2SAT 91
[2016-08-10] MEDS: HEPARIN 25,000 UNIT/500ML D5W 500 ML IV PRN (03:47)
[2016-08-10] MEDS: LEVOTHYROXINE 50 MCG TAB PO SCH (03:48)
[2016-08-10 04:00] VITALS: O2SAT 91
[2016-08-10 07:29] VITALS: BP 114/76; PULSE 80; TEMP 36.7; O2SAT 94
[2016-08-10 08:00] VITALS: O2SAT 93
[2016-08-10] MEDS: ZYRTEC D PO PRN (08:00)
[2016-08-10] MEDS: BUDESONIDE/FORMOTEROL FUMARATE 160/4.5 60 PUFFS/INHALER INH SCH (08:00)
[2016-08-10] MEDS ORDERED: ENOXAPARIN 100 MG/1ML SYR SQ SCH (10:30)
[2016-08-10] MEDS ORDERED: CMD5 PO (10:35)
[2016-08-10] MEDS ORDERED: LVNIS100 SQ (10:35)
--- NOTE | 2016-08-10 10:38 | Discharge Instructions ---
Discharge Instructions Admission Reason for Admission: Pulmonary Emboli, Pulmonary Hypertension Discharge Discharge Diagnosis / Problem: (1) Pulmonary emboli (2) Leg DVT (deep venous thromboembolism), acute VTE Date & Time Date of VTE Diagnosis: Aug 06, 2016 Time of VTE Diagnosis: 18:35 Discharge Goals Goal(s): Decrease discomfort, Improve function, Increase independence Activity Recommendations Activity Limitations: as noted below Exercise/Sports Limitations: gradually increase as tolerated . Instructions / Follow-Up Instructions / Follow-Up PT/INR checked tomorrow. The coumadin clinic will call you with dosing instructions for tomorrow. You should call Dr. Hartley's office to establish follow up. He is planning a CT scan in 1 month. You should establish with Dr. Rogers or another ict help desk technician in the next few weeks Follow up with Dr. Iniguez or Dr. Peoples as they have scheduled you next week Medication Instructions: * Warfarin is a medicine prescribed to prevent blood clots * Warfarin will thin your blood and help prevent new clots * Take your medications exactly as directed * Never skip a dose. Never take a double dose. If you miss a dose, take it as soon as you remember * It is important for your doctor to monitor your prothrombin time (PT). This is a lab test * Keep your appointment for lab tests Risk of Adverse Drug Reactions and Interactions: * Warfarin increases your risk of bleeding * The food you eat and other medications you take can affect how Warfarin works in your body * Ask your doctor about daily aspirin therapy * It is very important to talk with your doctor about all of the other medicines , antibiotics, vitamins or herbal products that you are taking * All of your medication must be approved by your doctor, including new medicines, as well as medicines you have taken before you started taking Warfarin Diet: * In order for Warfarin to work properly, it is important to keep your intake of Vitamin K as consistent as possible * You should avoid any sudden change in Vitamin K intake * Report any significant changes in your diet or weight to your doctor Call your Primary Care doctor if you experience any of the following: * Swelling or Pain in your leg * Sudden, continuous pain deep in a muscle * Pain that worsens when you are active or when you stand still for a long time * Chest Pain * Sudden Shortness of Breath * Rapid or pounding heart beat * Fainting * Dizziness * Cough with blood or bloody sputum * Sweating more than normal * Bruises * Heavy or uncontrolled bleeding * Blood in your urine, stool or vomit * Black or tarry stools Caring for Your Self at Home: * Avoid sitting, standing or lying down for long periods without moving your legs and feet * When traveling by car, stop to get out and move around at least once every 3 hours * On long airplane, train or bus rides, get up and move around when possible * If you can't get up, wiggle your toes and tighten your calves to keep your blood moving Follow Up: It is important for you to keep your follow up appointments with your medical provider. Current Hospital Diet Patient's current hospital diet: Regular Diet Discharge Diet Recommended Diet: Regular Diet Pending Studies Studies pending at discharge: yes List of pending studies: Hypercoag panel Medical Emergencies . Who to Call and When: Medical Emergencies: If at any time you feel your situation is an emergency, please call 911 immediately. . Non-Emergent Contact Non-Emergency issues call your: Primary Care Provider, Device Repair Technician . . "Provider Documentation" section prepared by Orquidea Quick. VTE Core Measure Inpt VTE Proph given/why not?: Enoxaparin (Lovenox)SQ, Warfarin (Coumadin), Contraindicated Reason no anticoag overlap I/P: Treatment provided - N/A Reason no anticoag overlap @DC: Treatment provided - N/A
--- NOTE | 2016-08-10 10:48 | Discharge Summary ---
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 Naeem Serna Medication Reconciliation New Medications: Warfarin Sod (Coumadin) 5 Mg Tab 1 TAB PO HS, #30 1 Refill Enoxaparin (Enoxaparin Sodium) 100 Mg/Ml Inj 100 MG SQ Q12@1000,2200 for 5 Days, #10 1 Refill Continued Medications: Albuterol Inhaler (Ventolin Inhaler) Aers 2 PUFFS INH QID PRN for ALLERGIC REACTION, #5 INHALER Budesonide/Formoterol Fumarate (Symbicort 160/4.5 Inhaler ) Aero 1 PUFFS INH BID, INHALER Cetirizine/Pseudoephedrine (Zyrtec-D Er 5MG/120MG) Tabcr 1 TABLET PO Q12H, TAB Levothyroxine Sodium (Synthroid) 50 Mcg Tab 50 MCG PO DAILY, TAB Mometasone Furoate (Nasonex) [place] 2 SPRAYS FABIANO DAILY, BTL Nortriptyline (Pamelor) 50 Mg Cap 50 MG PO HS, CAP Oxycodone HCl (Oxycodone HCl) 5 Mg Tab 5 MG PO Q4 PRN for Pain Discharge Exam Pt continues to improve. Still with some SOB and LE pain with more prolonged ambulation, but better than yesterday. He has been eating without issue. No hemoptysis. Pt denies fever, chest pain, abd pain, n/v/c/d, LE swelling. ROS as noted above, otherwise neg. 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 was on coumadin for that until he had hemoptysis and since then he stopped Coumadin, did not take ASA or plavix. presented with LLE pain. Numerous left-sided pulmonary emboli/left lower extremity DVT involving the popliteal vein F/U hypercoagulable workup Heparin gtt during admission, will d/c on coumadin given potential for hemoptysis and upcoming procedures CT surg and pulm have differing opinions on further management. ? pneumonectomy vs IVC filter, they will continue to follow Vasc surg does not recommend IVC at this time Pt had been on coumadin 7.5mg M/ and 5mg remainder of days prior to d/c of coumadin 6 months ago for hemoptysis Will start 10mg today and recheck tomorrow, lovenox bridge Pt was apparently instructed by Dr. Hartley that if he has any issues with bleeding, he is to call Dr. Hartley's cell phone directly and come to the ED immediately. Hx of hemoptysis; at that time he was on coumadin, possibly bronchitis related, but also could be secondary to his underlying lung pathology Hypothyroidism continue levothyroxine sodium 50 g by mouth daily. Insomnia--continue nortriptyline 50 mg by mouth at bedtime. Seasonal allergy--change Nasonex nasal spray to Flonase 2 sprays each nostril daily for formulary interchange. We'll hold on Zyrtec-D ER at this time. Total Time Spent: Greater than 30 minutes This includes examination of the patient, discharge planning, medication reconciliation, and communication with other providers. Discharge Instructions Please refer to the electronic Patient Visit Report (Discharge Instructions) for additional information. Follow-Up PT/INR checked tomorrow. The coumadin clinic will call you with dosing instructions for tomorrow. You should call Dr. Hartley's office to establish follow up. He is planning a CT scan in 1 month. You should establish with Dr. Rogers or another electronics teacher in the next few weeks Follow up with Dr. Iniguez or Dr. Peoples as they have scheduled you next week Additional Copies To Paul Peoples D.O.; Roseann Daniel M.D., PHD; [facility]; Ankit Rogers MD; Linwood Hartley MD
[2016-08-10 10:49] VITALS: BP 114/76; PULSE 80; TEMP 36.7; O2SAT 93
[2016-08-10] MEDS ORDERED: WARFARIN SOD 10 MG TAB PO SCH (16:00)
[2016-08-11 13:54] LABS: ANTITHROMBINIII ACTIVITY** 97 % activity (80-120); B2 GLYCOPROTEIN IGA <9 SAU (<=20); B2 GLYCOPROTEIN IGG <9 SGU (<=20); B2 GLYCOPROTEIN IGM <9 SMU (<=20); LAC PTT SCREEN 33 sec (<=40); LUPUS ANTICOAGULANT** TC36573X Negative (Negative); PHOSPHATIDYLSERINE IGA <20 U/mL (<20); PHOSPHATIDYLSERINE IGG <10 U/mL (<10); PHOSPHATIDYLSERINE IGM <25 U/mL (<25); PROTEIN C ACTIVITY** TC 1777X 105 % (70-180); PROTEIN S FREE 67 % normal (57-171); PROTEIN S TOTAL 95 % (70-140)
[2016-08-12] MEDS ORDERED: ALBUAER19 INH (08:10)
[2016-08-12] MEDS ORDERED: RXC/5 PO (09:06)
[2016-08-12] MEDS ORDERED: SYMIN160 INH (09:58)
[2016-08-12] MEDS ORDERED: MOME50SP5 NAE (10:16)
[2016-08-12] MEDS ORDERED: NORT50CA PO (10:23)
[2016-08-12 11:17] LABS: DRVVT 1:1(REFLEX!DO NOT ORDER) CORRECTED (CORRECTED)
--- NOTE | 2016-08-12 14:27 | EDITING REQUIRED CODING QUERY ---
CODING QUERY Dear Dr. Quick, To promote full compliance with coding requirements relating to patient care, provider participation is requested in all cases of transportation analyst uncertainty. Please assist us with the question(s) below: In responding to this query, please exercise your independent professional judgement. The fact that a question is asked does not imply that any particular answer is desired or expected. We appreciate your clarification on this issue. Coding Question(s): ALLERGY (x ) Seasonal Allergies ( ) Other Allergy: Please identify allergen ( ) Unable to determine Medical documentation: Allergy--change Nasonex nasal spray to Flonase 2 sprays each nostril daily for formulary interchange. We'll hold on Zte-D ER at this time. Physician's Response(s): Thank you for your time. JIM Garcia Principal Diagnosis: "_that condition established after study, to be chiefly responsible for occasioning the admission of the patient to the hospital for care." Co-Existing Principal Diagnosis: "_when two or more diagnoses equally meet the criteria for principal diagnosis as determined by the circumstances of admission, diagnostic work up, and/or therapy provided, and the Alphabetic Index, Tabular List, or another coding guideline does not provide sequencing direction, any one of the diagnoses may be sequenced first." "When the physician has documented what appears to be a current diagnosis in the body of the record, but has not included the diagnosis in the final diagnostic statement, the physician should be asked whether the diagnosis should be added." (Source Coding Clinic 2 QTR90. p3-4)
[2016-08-12] MEDS ORDERED: CETITAB27 PO (18:44)
[2016-08-12] MEDS ORDERED: LEVO50TA PO (18:47)
[2016-08-15] MEDS ORDERED: WARF5TAB7 PO (11:51)
[2016-09-16] MEDS ORDERED: FLUT0.15 NAE (11:33)
[2016-09-16] MEDS ORDERED: WARF5TAB7 PO (11:33)
[2016-09-16] MEDS ORDERED: WARF7.5T4 PO (11:33)
== END 2016-08-10 11:34 | disposition home or self-care (01) | DRG 299 ==
LOC: ENRESERVDT → ENRESERVTM → C.EDB 15:23 → C.2T 21:07
PROVIDERS: ADMIT Hospitalist; ATTEND Family Medicine
DX: I82.402 Acute embolism and thrombosis of unspecified deep veins of left lower extremity (principal); J98.59 Other diseases of mediastinum, not elsewhere classified; Q25.6 Stenosis of pulmonary artery; I87.1 Compression of vein; R04.2 Hemoptysis; T82.898A Other specified complication of vascular prosthetic devices, implants and grafts, initial encounter; I27.82 Chronic pulmonary embolism; E03.9 Hypothyroidism, unspecified; I82.211 Chronic embolism and thrombosis of superior vena cava; I27.2 Other secondary pulmonary hypertension; J30.2 Other seasonal allergic rhinitis; J44.9 Chronic obstructive pulmonary disease, unspecified; J84.112 Idiopathic pulmonary fibrosis; Y71.2 Prosthetic and other implants, materials and accessory cardiovascular devices associated with adverse incidents; G47.00 Insomnia, unspecified; T78.40XD Allergy, unspecified, subsequent encounter; Z86.19 Personal history of other infectious and parasitic diseases; Z85.820 Personal history of malignant melanoma of skin; Z86.69 Personal history of other diseases of the nervous system and sense organs; Z79.51 Long term (current) use of inhaled steroids; Z79.899 Other long term (current) drug therapy; Z95.828 Presence of other vascular implants and grafts; Z79.891 Long term (current) use of opiate analgesic

== ENCOUNTER 2016-08-12 19:37 | Emergency (ER) | payer BC ==
[~2016-08-12] VITALS: Ht 177.8 cm; Wt 97.8 kg
[~2016-08-12 19:37] MED LIST: ALBUAER19 INH; CETITAB27 PO; CMD5 PO; LEVO50TA PO; LVNIS100 SQ; MOME50SP5 NAE; NORT50CA PO; RXC/5 PO; SYMIN160 INH
[2016-08-12 19:42] VITALS: BP 129/83; PULSE 99; TEMP 36.6; O2SAT 96; Ht 177.8 cm; Wt 97.8 kg
--- NOTE | 2016-08-12 19:57 | EMERGENCY ROOM VISIT NOTE ---
History Report prepared by Don: Hanane Fox Under the Supervision of: Dr. Cuong Gil M.D. First contact with patient: 19:49 Chief Complaint: LEG PAIN,LEG INJURY Stated Complaint: POSSIBLE PE, LEG PAIN History of Present Illness The patient is a 50 year old male who presents to the Emergency Room with complaints of resolved chest pain that began this evening and lasted for 5-10 minutes. He states that last week he was diagnosed with DVT in the left calf and PE. He notes that this afternoon he was experiencing intermittent left calf pain. The patient states he is in no pain at the moment. He is currently on Lovenox and Warfarin. Source of History: patient Onset: this evening Position: chest Timing: resolved Note: The patient has left calf pain. He has no pain at this time. Review of Systems See HPI for pertinent positives & negatives. A total of 10 systems reviewed and were otherwise negative. 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 Migrainosus (5) Oth Pulmon Embolism/Infarct (6) Pulmonary emboli (7) Pulmonary hypertension associated with mediastinal fibrosis Family History Cancer Social History Smoking Status: Never Smoker Alcohol Use: occasionally Drug Use: none Marital Status: Occupation Status: retired, disabled Current/Historical Medications Scheduled Budesonide/Formoterol Fumarate (Symbicort 160/4.5 Inhaler ), 1 PUFFS INH BID Cetirizine/Pseudoephedrine (Zyrtec-D Er 5MG/120MG), 1 TABLET PO Q12H Enoxaparin (Enoxaparin Sodium), 100 MG SQ Q12@1000,2200 Levothyroxine Sodium (Synthroid), 50 MCG PO DAILY Mometasone Furoate (Nasonex), 2 SPRAYS FABIANO DAILY Nortriptyline (Pamelor), 50 MG PO HS Warfarin Sodium (Warfarin Sodium), 10 MG PO TODAY Scheduled PRN Albuterol Inhaler (Ventolin Inhaler), 2 PUFFS INH QID PRN for ALLERGIC REACTION Oxycodone HCl (Oxycodone HCl), 5 MG PO Q4 PRN for Pain Allergies Coded Allergies: No Known Allergies (Verified , 10/29/15) Physical Exam Vital Signs Date Time Temp Pulse Resp B/P Pulse Ox O2 Delivery O2 Flow Rate FiO2 08/12/16 19:52 Room Air 08/12/16 19:42 36.6 99 20 129/83 96 Room Air Physical Exam CONSTITUTIONAL: No acute distress. HEENT: No icterus, moist mucous membranes NECK: No meningismus, trachea is midline. CARDIOVASCULAR: Regular rate, normal perfusion RESPIRATORY: Unlabored breathing. Clear to auscultation. GASTROINTESTINAL: Non-tender GENITOURINARY: No flank tenderness MUSCULOSKELETAL: Full range of motion. Mild left calf tenderness. NEUROLOGIC: No acute gross focal deficits. PSYCHIATRIC: Normal affect SKIN: Normal for ethnicity. Medical Decision & Procedures Laboratory Results Test 08/12/16 20:14 Bedside Troponin I 0.000 ng/ml (0-0.045) Labs reviewed by ED physician. ECG Indication: other (PE diagnosed) Rate (beats per minute): 87 Rhythm: normal sinus Findings: no ectopy, other (normal axis, nonspecific ST findings) ED Course 1950: Past medical records reviewed. The patient was evaluated in room C12. A complete history and physical examination was performed. 2030: Upon reexamination the patient is hemodynamically stable. I discussed results and treatment plan with the patient. He verbalizes agreement and understanding. The patient is ready for discharge. Medical Decision Differential diagnoses include but are not limited to; complication pulmonary embolism, anticoagulation. 50-year-old presents to the emergency department for evaluation of roughly 5-10 minutes of chest pain. Has was recently diagnosed with DVT of left leg and CT of the chest revealed pulmonary emboli in the context of mediastinal fibrosis which he is on disability she does not fully profuse one of his lungs. He presented for medical clearance of acute or serious disease processes. Review of systems is negative for shortness of breath including with exertion. He really has no chest pain on exam. EKG was within normal limits and 0.8) was negative. It is noted patient with normal vital signs and no acute issues on Lovenox as well as warfarin for his known PE and DVT. Given that he is asymptomatic without review of systems concerning for cardiac disease we are in agreement that he can be discharged at this time. He understands to return for any worsening or worrisome symptoms. Impression Primary Impression: Pulmonary emboli Scribe Attestation The scribe's documentation has been prepared under my direction and personally reviewed by me in its entirety. I confirm that the note above accurately reflects all work, treatment, procedures, and medical decision making performed by me. Departure Information Dispostion Home / Self-Care Referrals Temo Cortes M.D. (PCP) Forms HOME CARE DOCUMENTATION FORM, IMPORTANT VISIT INFORMATION Patient Instructions Coumadin, Embolism Pulmonary Dc, My [facility]
[2016-08-12] MEDS ORDERED: WARF-246 PO (20:16)
[2016-08-15] MEDS ORDERED: WARF5TAB7 PO (11:51)
[2016-09-16] MEDS ORDERED: FLUT0.15 NAE (11:33)
[2016-09-16] MEDS ORDERED: WARF7.5T4 PO (11:33)
[2016-09-16] MEDS ORDERED: WARF5TAB7 PO (11:33)
== END 2016-08-12 20:38 | disposition home or self-care (01) ==
LOC: C.EDB 19:39 → C.EDC 20:38
DX: I26.99 Other pulmonary embolism without acute cor pulmonale (principal); E03.9 Hypothyroidism, unspecified; Z80.9 Family history of malignant neoplasm, unspecified; Z79.01 Long term (current) use of anticoagulants

== ENCOUNTER → 2016-09-13 | Outpatient (CLI) | payer BC ==
[~2016-09-13] MED LIST changes: -CMD5 PO; +FLUT0.15 NAE; -LVNIS100 SQ; +WARF-246 PO; +WARF5TAB7 PO; +WARF7.5T4 PO
--- NOTE | 2016-09-13 09:52 | DIAGNOSTIC IMAGING REPORT ---
CHEST CTA for PULMONARY ARTERIES CT DOSE: 598.04 mGycm HISTORY: Pulmonary emboli chest pain TECHNIQUE: Multiaxial CT images of the chest were performed following the intravenous administration of contrast to evaluate the pulmonary arteries. Maximal intensity projection images were also obtained. COMPARISON STUDY: 08/06/2016 FINDINGS: The bulk of the study is similar compared to the prior study. Continues be near complete emboli formation throughout the arterial structures the right hemithorax. Right main pulmonary arterial stent remains occluded with this considered unchanged. The parenchymal infiltrative changes throughout the right hemithorax remains similar. The left-sided pulmonary emboli are perhaps slightly decreased in number. This would indicate partial recanalization. No new or interval emboli are present. Left lung is improved in clarity and currently has no focal infiltrative change. Occlusion of the superior vena cava persists. Chest wall collaterals considered well formed are unchanged. Mediastinal findings are stable. IMPRESSION: 1 this study continues to be positive for extensive pulmonary emboli primarily of the right hemithorax.. 2. The right pulmonary arterial stent remains occluded as does the superior vena cava. 3. Slight improvement in opacification of the left hemithoracic pulmonary arterial vasculature, indicating partial recanalization of the previously described emboli. 4. Left lung now is considered clear. 5. Parenchymal infiltrative change throughout the right hemithorax persists 6. Unchanging occlusion superior vena cava Electronically signed by: Chad Soto M.D. 09/13/2016 9:50 AM Dictated Date/Time: 09/13/2016 9:38 AM
== END | disposition home or self-care (01) ==
LOC: C.CTS 09:14
PROVIDERS: ATTEND Surgery
DX: I26.99 Other pulmonary embolism without acute cor pulmonale (principal); I82.210 Acute embolism and thrombosis of superior vena cava

== ENCOUNTER 2017-06-02 13:37 | Emergency (ER) | payer BC ==
[~2017-06-02] VITALS: Ht 177.8 cm; Wt 100.1 kg
[~2017-06-02 13:37] MED LIST changes: -MOME50SP5 NAE; -WARF-246 PO
[2017-06-02 13:42] VITALS: TEMP 36.6; Ht 177.8 cm; Wt 100.1 kg
[2017-06-02] MEDS ORDERED: OXYC-164 PO (14:17)
[2017-06-02] MEDS ORDERED: CEPH500C2 PO (14:18)
--- NOTE | 2017-06-02 14:19 | EMERGENCY ROOM VISIT NOTE ---
ED Visit Note First contact with patient: 13:58 CHIEF COMPLAINT: Infection on the left hand times one day HISTORY OF PRESENT ILLNESS: Patient is a 51-year-old white male who presents to emergency department for evaluation of an infected area on the outside of his left hand that he noticed yesterday. He states that yesterday afternoon he noted a small bump on the left hand, over the fifth metatarsal region. He states that he scratched at it, and it developed into a small blood blister. He put antibiotic ointment on it and applied a bandage. When he woke today, the area appeared pus filled, more like a pimple. He notes minimal discomfort at the site. There is been no drainage or discharge. He is not aware of any injury to the area, but has been doing yard work and working on his deck. He denies any pain or injury preceding the area to make him think that he may have a foreign body, orbit or stung by anything. No fever, chills, or loss of appetite. He denies any hand or wrist pain. No red streaking noted up the left arm. He denies any prior history of skin infections or abscesses. REVIEW OF SYSTEMS: Review of systems as per HPI. All other systems reviewed were negative. At least 6 systems reviewed. PMH: Electronic medical records are reviewed and summarized as above/below. See Problem List. His tetanus is up-to-date. SOCIAL HISTORY: Patient lives at home with his and children. Not employed. He does not smoke. PHYSICAL EXAM: Vital Signs: Reviewed Nurse's notes. CONSTITUTIONAL: Patient is a well-appearing 11-year-old white male who is awake and alert and in no acute distress. INTEGUMENTARY: Examination of the radial aspect of the left hand, over the mid left fifth metacarpal, notes a small, roughly 3-4 mm pustule, with a slightly erythematous base. There is no surrounding increased warmth or induration. No lymphangitic streaking. Left upper extremity is neurovascularly intact. Full hand, finger and wrist range of motion. EMERGENCY DEPARTMENT COURSE: The patient was seen and assessed as above. He has a very small pustule noted on the outside of the left hand of unclear etiology. He went to an urgent care center which apparently did not have a provider, which thus prompted him to come to the emergency department. Using alcohol cleansing, the pustule was deroofed with an 18-gauge needle. The small core or of pus was easily removed. The area was irrigated copiously using normal saline solution. It was probed with cotton-tipped applicator, there was no further fluctuance. Bacitracin and a Band-Aid were applied. Given the superficial nature of the pustule, it was not felt that any oral antibiotics were necessary, however he was still provided a prescription for Keflex if his symptoms should worsen. Otherwise local wound care measures were discussed. He was educated on the worrisome signs or symptoms for which she should return to the emergency department. He was discharged home in good condition. Differential diagnoses entertained included foreign body, abscess, pustule, lymphangitis, among others. Medication reconciliation: I attest that I have personally reviewed the patient' s current medication list. Blood pressure screening : Patient was found to have normal blood pressure on screening and does not require follow-up. Problem List Medical Problems: (1) History of histoplasmosis Status: Chronic (2) Idiopathic fibrosing mediastinitis Status: Chronic (3) Pulmonary hypertension associated with mediastinal fibrosis Status: Chronic Current/Historical Medications Scheduled Budesonide/Formoterol Fumarate (Symbicort 160/4.5 Inhaler ), 1 PUFFS INH BID Cephalexin Monohydrate (Keflex), 500 MG PO TID Cetirizine/Pseudoephedrine (Zyrtec-D Er 5MG/120MG), 1 TABLET PO BID Fluticasone Propionate (Nasal) (Flonase Allergy Relief), 2 SPRAYS FABIANO BID Levothyroxine Sodium (Synthroid), 50 MCG PO DAILY Nortriptyline (Pamelor), 50 MG PO HS Warfarin Sod (Jantoven), 7.5 MG PO 2XWK Warfarin Sod (Jantoven), 5 MG PO 5XWK Scheduled PRN Albuterol Inhaler (Ventolin Inhaler), 2 PUFFS INH QID PRN for ALLERGIC REACTION Oxycodone HCl (Oxycodone HCl), 5 MG PO Q4 PRN for Pain Oxycodone Hcl (Oxycodone Hcl), 10 MG PO Q8 PRN for Pain Allergies Coded Allergies: No Known Allergies (Verified , 10/29/15) Vital Signs Date Time Temp Pulse Resp B/P (MAP) Pulse Ox O2 Delivery O2 Flow Rate FiO2 06/02/17 14:33 92 18 129/79 95 Room Air 06/02/17 13:42 36.6 99 16 138/90 94 Room Air Departure Information Impression Primary Impression: Skin pustule Prescriptions Cephalexin Monohydrate (KEFLEX) 500 Mg Cap 500 MG PO TID, #15 CAP Prov: Shae Santos,OSBALDO 06/02/17 Referrals Temo Cortes M.D. (PCP) Patient Instructions [facility] Additional Instructions Clean wound daily with mild soap and water, cover with antibiotic ointment and a bandage until healed. Return immediately for any signs of infection (increasing redness, swelling, drainage). Ice and elevate for swelling and pain. Tylenol 1000 mg every 6 hrs for pain. If symptoms recur, fill and take the prescription for Keflex, and seek medical attention in 24-48 hours.
[2017-06-02 14:33] VITALS: BP 129/79; PULSE 92; O2SAT 95
== END 2017-06-02 14:34 | disposition home or self-care (01) ==
LOC: C.EDB 13:42 → C.EDD 14:34
DX: L08.9 Local infection of the skin and subcutaneous tissue, unspecified (principal); J84.112 Idiopathic pulmonary fibrosis; I27.23 Pulmonary hypertension due to lung diseases and hypoxia; Z79.01 Long term (current) use of anticoagulants; Z79.899 Other long term (current) drug therapy

== ENCOUNTER → 2017-06-19 | Outpatient (CLI) | payer BC ==
[~2017-06-19] MED LIST changes: +CEPH500C2 PO; +OXYC-164 PO
--- NOTE | 2017-06-19 15:11 | DIAGNOSTIC IMAGING REPORT ---
SOFT TISSUE NECK CLINICAL HISTORY: Acute pharyngitis. COMPARISON STUDY: Barium swallow March 02, 2006. FINDINGS: Epiglottis is normal. Prevertebral soft tissues are unremarkable by radiography. No abnormal soft tissue gas is identified on this exam. IMPRESSION: No significant abnormality within the neck by radiography. Electronically signed by: Tucker Thornton M.D. 06/19/2017 3:10 PM Dictated Date/Time: 06/19/2017 3:09 PM
== END | disposition home or self-care (01) ==
LOC: C.RAD1850 14:19
PROVIDERS: ATTEND Physician Assistant
DX: J02.9 Acute pharyngitis, unspecified (principal)

== ENCOUNTER → 2017-06-22 | Outpatient (CLI) | payer BC ==
[~2017-06-22] MED LIST changes: +OPTIRAY 320 IV PRN
--- NOTE | 2017-06-22 07:28 | DIAGNOSTIC IMAGING REPORT ---
CT SOFT TISSUE NECK WITH CT DOSE: 562.55 mGy.cm CLINICAL HISTORY: Acute pharyngitis. Possible retropharyngeal abscess. TECHNIQUE: Helical images were acquired during intravenous administration of 94 cc of Optiray 320. A dose lowering technique was utilized adhering to the principles of ALARA. COMPARISON STUDY: None. FINDINGS: The visualized portions of the lung apices are unremarkable. No thyroid masses are visualized. No salivary gland masses are visualized. There are no pathologically enlarged cervical lymph nodes. No necrotic nodes are evident. There are no fluid collections suspicious for abscess. There is no evidence of airway compromise. There is mild tonsillar hypertrophy. The epiglottis appears normal. The retropharyngeal soft tissues appear normal. IMPRESSION: 1. Mild tonsillar hypertrophy 2. The epiglottis appears normal. 3. No evidence of tonsillar or retropharyngeal abscess. 4. No evidence of airway compromise Electronically signed by: Pepe Boateng M.D. 06/22/2017 7:26 AM Dictated Date/Time: 06/22/2017 7:22 AM
== END | disposition home or self-care (01) ==
LOC: C.CTS 06:56
PROVIDERS: ATTEND Physician Assistant
DX: J39.0 Retropharyngeal and parapharyngeal abscess (principal)

== ENCOUNTER 2017-07-27 10:53 | Emergency (ER) | payer BC ==
[~2017-07-27] VITALS: Ht 177.8 cm; Wt 107.0 kg
[~2017-07-27 10:53] MED LIST changes: -OPTIRAY 320 IV PRN
[2017-07-27 11:00] VITALS: TEMP 37.6; Ht 177.8 cm; Wt 107.0 kg
[2017-07-27 11:15] VITALS: O2SAT 95
[2017-07-27] MEDS ORDERED: ALBUT/IPRATROP 3MG/0.5MG NEB 3 ML VIAL INH ONE (11:30)
[2017-07-27] MEDS ORDERED: LEVO75TA5 PO (11:32)
[2017-07-27] MEDS ORDERED: VNTHFA/IN INH (11:32)
[2017-07-27 11:40] LABS: BASO % 0.3 %; BASO ABS # 0.02 K/uL (0-0.2); EOS % 2.2 %; EOS ABS # 0.14 K/uL (0-0.5); HEMATOCRIT 44.2 % (42-52); HEMOGLOBIN 15.4 g/dL (14.0-18.0); IG# 0.02 K/uL (0.00-0.02); LYMPH % 24.5 %; LYMPH ABS # 1.55 K/uL (1.2-3.4); MEAN CELL VOLUME 90.6 fL (80-100); MEAN CORPUSCULAR HEMOGLOBIN 31.6 pg (25-34); MEAN CORPUSCULAR HGB CONC 34.8 g/dl (32-36); MEAN PLATELET VOLUME 8.7 fL (7.4-10.4); MONO % 9.2 %; MONO ABS # 0.58 K/uL (0.11-0.59); NEUT % 63.5 %; NEUT ABS # 4.02 K/uL (1.4-6.5); PLATELET COUNT 182 K/uL (130-400); RED CELL DISTRIBUTION WIDTH CV 13.1 % (11.5-14.5); RED CELL DISTRIBUTION WIDTH SD 43.4 fL (36.4-46.3); WHITE BLOOD COUNT 6.33 K/uL (4.8-10.8)
[2017-07-27 11:47] VITALS: PULSE 79; O2SAT 95
[2017-07-27 11:48] LABS: ALT/SGPT 44 U/L (12-78); BLOOD UREA NITROGEN 17 mg/dl (7-18); CALCIUM 8.8 mg/dl (8.5-10.1); CARBON DIOXIDE 31 mmol/L (21-32); CREATININE 0.95 mg/dl (0.60-1.40); GLUCOSE 86 mg/dl (70-99); LIPASE 99 U/L (73-393); POTASSIUM 3.7 mmol/L (3.5-5.1); SODIUM 138 mmol/L (136-145)
[2017-07-27 11:54] LABS: ALKALINE PHOSPHATASE 99 U/L (45-117); AST/SGOT 28 U/L (15-37); CKMB 0.7 ng/ml (0.5-3.6); TOTAL PROTEIN 7.5 gm/dl (6.4-8.2)
[2017-07-27 12:23] LABS: INFLUENZA B ANTIGEN Neg for Influ B (NEG)
--- NOTE | 2017-07-27 12:46 | DIAGNOSTIC IMAGING REPORT ---
SINGLE VIEW CHEST CLINICAL HISTORY: Atypical chest pain. Chest congestion. FINDINGS: An AP, portable, upright chest radiograph is compared to study dated 11/04/2015 and correlated with chest CT dated . The cardiomediastinal silhouette is unremarkable. A bronchial stent is noted on the right. Airspace consolidation is seen in the right mid to lower lung a small right pleural effusion is suspected. The left lung appears clear. No pneumothorax is seen. The skeletal structures appear osteopenic. The bony thorax is grossly intact. IMPRESSION: 1. Airspace consolidation is seen in the right mid to lower lung. Correlate clinically for evidence of pneumonia. 2. The left lung appears clear. 3. A right-sided bronchial stent is noted. Electronically signed by: Brandon Barclay M.D. 07/27/2017 12:44 PM Dictated Date/Time: 07/27/2017 12:43 PM
[2017-07-27] MEDS ORDERED: ALBUTEROL HFA 8 GM INHALER INH STA (12:53)
[2017-07-27] MEDS ORDERED: METHYLPREDNISOLONE 125 MG VIAL IV STA (12:53)
[2017-07-27 13:09] LABS: ISTAT IONIZED CALCIUM 1.2 mmol/l (1.12-1.32); ISTAT POTASSIUM 3.7 mEq/L (3.3-5.0)
[2017-07-27 13:17] VITALS: BP 105/72; PULSE 91; O2SAT 94
[2017-07-27] MEDS ORDERED: PRED20TA2 PO (13:17)
--- NOTE | 2017-07-30 17:40 | EMERGENCY ROOM VISIT NOTE ---
History First contact with patient: 11:14 Chief Complaint: CHEST PAIN Stated Complaint: LUNG PAIN, CHEST CONGESTION, LUNG VIB IN [facility] Nursing Triage Summary: having pain in chest and lungs when breathing last night. symptoms have increased since last night. hx of blood clots in legs and lungs, is currently taking blood thinners. History of Present Illness The patient is a 51 year old male who presents to the Emergency Room with complaints of left lung congestion. 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 I will note that the patient is not hypoxic here in the emergency department and appears comfortable. He denies running any fevers at home and has been taking his Coumadin. He does not have any other complaints. Review of Systems See HPI for pertinent positives & negatives. A total of 10 systems reviewed and were otherwise negative. 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 Family History Cancer Social History Smoking Status: Never Smoker Alcohol Use: occasionally Drug Use: none Marital Status: Occupation Status: retired, disabled Current/Historical Medications Scheduled Cetirizine/Pseudoephedrine (Zyrtec-D Er 5MG/120MG), 1 TABLET PO BID Fluticasone Propionate (Nasal) (Flonase Allergy Relief), 2 SPRAYS FABIANO BID Levothyroxine Sodium (Levothyroxine Sodium), 75 MCG PO DAILY Nortriptyline (Pamelor), 50 MG PO HS Prednisone (Prednisone Tab), 0 PO DAILY Warfarin Sod (Jantoven), 7.5 MG PO 2XWK Warfarin Sod (Jantoven), 5 MG PO 5XWK Scheduled PRN Albuterol Hfa (Ventolin Hfa), 2 PUFFS INH Q4H PRN for SOB/Wheezing Oxycodone HCl (Oxycodone HCl), 5 MG PO Q4 PRN for Pain Physical Exam Vital Signs Date Time Temp Pulse Resp B/P (MAP) Pulse Ox O2 Delivery O2 Flow Rate FiO2 07/27/17 13:17 91 18 105/72 94 Room Air 07/27/17 12:20 84 20 109/64 100 Room Air 07/27/17 11:47 79 18 95 21 07/27/17 11:20 90 07/27/17 11:15 95 Room Air 07/27/17 11:15 95 Room Air 07/27/17 11:00 37.6 84 18 115/70 96 Room Air Physical Exam GENERAL: Patient is a healthy-appearing well-nourished male HEAD: Normocephalic atraumatic EYES: Ocular movements intact pupils equal and react to light OROPHARYNX mucous membranes are moist no exudates present no erythema or edema present NECK: Supple no nuchal rigidity CHEST: Good equal expansion LUNGS: Clear and equal to auscultation CARDIAC: Normal S1 and S2 ABDOMEN: Soft nontender no guarding BACK: No CVA tenderness EXTREMITIES: No pain upon palpation normal muscle strength in all groups no clubbing cyanosis or edema NEURO: Patient is following commands is answering questions appropriately. Alert and oriented x3 Cranial Nerves 2-12 grossly intact Medical Decision & Procedures ER Provider Diagnostic Interpretation: SINGLE VIEW CHEST CLINICAL HISTORY: Atypical chest pain. Chest congestion. FINDINGS: An AP, portable, upright chest radiograph is compared to study dated 11/04/2015 and correlated with chest CT dated . The cardiomediastinal silhouette is unremarkable. A bronchial stent is noted on the right. Airspace consolidation is seen in the right mid to lower lung a small right pleural effusion is suspected. The left lung appears clear. No pneumothorax is seen. The skeletal structures appear osteopenic. The bony thorax is grossly intact. IMPRESSION: 1. Airspace consolidation is seen in the right mid to lower lung. Correlate clinically for evidence of pneumonia. 2. The left lung appears clear. 3. A right-sided bronchial stent is noted. Laboratory Results 07/27/17 11:15 Red Blood Count 4.88, Mean Corpuscular Volume 90.6, Mean Corpuscular Hemoglobin 31.6, Mean Corpuscular Hemoglobin Concent 34.8, Mean Platelet Volume 8.7, Neutrophils (%) (Auto) 63.5, Lymphocytes (%) (Auto) 24.5, Monocytes (%) (Auto) 9.2, Eosinophils (%) (Auto) 2.2, Basophils (%) (Auto) 0.3, Neutrophils # (Auto) 4.02, Lymphocytes # (Auto) 1.55, Monocytes # (Auto) 0.58, Eosinophils # (Auto) 0.14, Basophils # (Auto) 0.02 07/27/17 11:15 Test 07/27/17 11:15 07/27/17 11:20 07/27/17 11:33 07/27/17 11:46 White Blood Count 6.33 K/uL (4.8-10.8) Red Blood Count 4.88 M/uL (4.7-6.1) Hemoglobin 15.4 g/dL (14.0-18.0) Hematocrit 44.2 % (42-52) Mean Corpuscular Volume 90.6 fL (80-100) Mean Corpuscular Hemoglobin 31.6 pg (25-34) Mean Corpuscular Hemoglobin Concent 34.8 g/dl (32-36) Platelet Count 182 K/uL (130-400) Mean Platelet Volume 8.7 fL (7.4-10.4) Neutrophils (%) (Auto) 63.5 % Lymphocytes (%) (Auto) 24.5 % Monocytes (%) (Auto) 9.2 % Eosinophils (%) (Auto) 2.2 % Basophils (%) (Auto) 0.3 % Neutrophils # (Auto) 4.02 K/uL (1.4-6.5) Lymphocytes # (Auto) 1.55 K/uL (1.2-3.4) Monocytes # (Auto) 0.58 K/uL (0.11-0.59) Eosinophils # (Auto) 0.14 K/uL (0-0.5) Basophils # (Auto) 0.02 K/uL (0-0.2) RDW Standard Deviation 43.4 fL (36.4-46.3) RDW Coefficient of Variation 13.1 % (11.5-14.5) Immature Granulocyte % (Auto) 0.3 % Immature Granulocyte # (Auto) 0.02 K/uL (0.00-0.02) Prothrombin Time 20.6 SECONDS (9.0-12.0) Prothromb Time International Ratio 2.0 (0.9-1.1) Est Creatinine Clear Calc Drug Dose 115.2 ml/min Estimated GFR () 108.5 Estimated GFR (Non- 93.6 BUN/Creatinine Ratio 18.3 (10-20) Calcium Level 8.8 mg/dl (8.5-10.1) Total Bilirubin 0.5 mg/dl (0.2-1) Direct Bilirubin < 0.1 mg/dl (0-0.2) Aspartate Amino Transf (AST/SGOT) 28 U/L (15-37) Alanine Aminotransferase (ALT/SGPT) 44 U/L (12-78) Alkaline Phosphatase 99 U/L (45-117) Total Creatine Kinase 114 U/L (39-308) Creatine Kinase MB 0.7 ng/ml (0.5-3.6) Creatine Kinase MB Ratio 0.6 (0-3.0) Troponin I < 0.015 ng/ml (0-0.045) Total Protein 7.5 gm/dl (6.4-8.2) Albumin 4.0 gm/dl (3.4-5.0) Lipase 99 U/L (73-393) Procalcitonin < 0.05 ng/ml (0-0.5) Influenza Type A Antigen Neg for Influ A (NEG) Influenza Type B Antigen Neg for Influ B (NEG) Bedside Hemoglobin 13.9 g/dl (14.0-18.0) Bedside Hematocrit 41 % (42-52) Bedside Sodium 141 mEq/L (135-144) Bedside Potassium 3.7 mEq/L (3.3-5.0) Bedside Chloride 99 mEq/L (101-112) Bedside Total CO2 34 mEq/l (24-31) Anion Gap 13.0 mmol/L (16-25) Bedside Blood Urea Nitrogen 18 mg/dl (7-18) Bedside Creatinine 1.0 mg/dl (0.6-1.3) Bedside Glucose (other) 88 mg/dl (70-99) Bedside Ionized Calcium (Kiah) 1.20 mmol/l (1.12-1.32) Bedside Lactic Acid Venous 1.09 mmol/L (0.90-1.70) Medications Administered Medications (Trade) Dose Ordered Sig/Brunilda Route Start Time Stop Time Status Last Admin Dose Admin Albuterol/ Ipratropium (Duoneb) 12 ml ONE ONCE INH 1/11/18 11:30 07/27/17 11:31 DC 07/27/17 11:44 12 ML Methylprednisolone Sodium Succinate (Solu-Medrol IV) 60 mg NOW STAT IV 07/27/17 12:53 07/27/17 12:56 DC 07/27/17 13:14 60 MG Albuterol (Ventolin Hfa Inhaler) 2 puffs NOW STAT INH 07/27/17 12:53 07/27/17 12:56 DC 07/27/17 13:14 2 PUFFS Medical Decision This is a 51-year-old male who presents emergency department complaining of tightness in the left side of his chest. The patient has one functioning long and is therefore concerned if he gets pneumonia. He does not have an elevation in his white blood count cell count. The patient was given a breathing treatment here in the emergency department started on Solu -Medrol. I the patient at this point wishes to be discharged he does not wish to be admitted. His flu swab is negative. I stressed the need to return to the emergency department if he develops difficulty breathing or short of breath. Patient was in agreement with the treatment plan. Impression Primary Impression: Bronchitis Departure Information Dispostion Home / Self-Care Condition GOOD Prescriptions Prednisone (Prednisone Tab) 20 Mg Tab 0 PO DAILY, #7 TAB 2 TABS DAILY FOR 2 DAYS, THEN 1 TAB DAILY FOR 2 DAYS, THEN 1/2 TAB DAILY FOR 2 DAYS. Prov: Marshall Kaminski MD 07/27/17 Forms Call Back Authorization, HOME CARE DOCUMENTATION FORM, School Instructions, Work Instructions, IMPORTANT VISIT INFORMATION Patient Instructions Bronchitis Acute Dc, My [facility] Additional Instructions Use inhaler twice every 6 hours You have been examined and treated today on an emergency basis only. This is not a substitute for, or an effort to provide, complete comprehensive medical care. It is impossible to recognize and treat all injuries or illnesses in a single emergency department visit. It is therefore important that you follow up closely with Dr Cortes. Call as soon as possible for an appointment. Thank you for your time and consideration. I look forward to speaking with you again soon. Please don't hesitate to call us if you have any questions.
== END 2017-07-27 13:29 | disposition home or self-care (01) ==
LOC: C.EDB 10:57 → C.EDC 13:29
DX: J40 Bronchitis, not specified as acute or chronic (principal); I87.1 Compression of vein; E03.9 Hypothyroidism, unspecified; I27.20 Pulmonary hypertension, unspecified; J98.59 Other diseases of mediastinum, not elsewhere classified; Z79.01 Long term (current) use of anticoagulants; Z86.718 Personal history of other venous thrombosis and embolism; Z86.711 Personal history of pulmonary embolism; Z80.9 Family history of malignant neoplasm, unspecified

== ENCOUNTER → 2017-08-24 | Outpatient (CLI) | payer BC ==
[~2017-08-24] MED LIST changes: -ALBUAER19 INH; -CEPH500C2 PO; -LEVO50TA PO; +LEVO75TA5 PO; -OXYC-164 PO; +PRED20TA2 PO; -SYMIN160 INH; +VNTHFA/IN INH
--- NOTE | 2017-08-24 09:13 | DIAGNOSTIC IMAGING REPORT ---
RIBS UNILATERAL MIN 2 VIEWS, CHEST 2 VIEWS ROUTINE HISTORY: 51 years-old Male R05 Cough acute cough with right-sided rib pain for 5 weeks. COMPARISON: CTA of the chest 08/06/2016, chest radiograph 07/27/2017 TECHNIQUE: PA and lateral views of the chest with 4 views of the right ribs FINDINGS: Cardiac silhouette is upper limits of normal, unchanged. Prominence of the pulmonary arteries suggests pulmonary arterial hypertension. Pulmonary arterial stent redemonstrated. No pneumothorax. Chronic blunting of the right costophrenic angle without large pleural effusion. Patchy multifocal mixed interstitial and alveolar opacities throughout the right lung are again seen, notably within the right perihilar distribution and right lung base, slightly worsened from comparison. No acute rib fracture identified. IMPRESSION: 1. Persistent mixed interstitial and alveolar opacities throughout the right lung, greatest within the perihilar and right basilar distribution suggesting scarring/fibrosis with possible pneumonitis. 2. Mild cardiomegaly without overt pulmonary edema. 3. Right pulmonary arterial stent. 4. No acute rib fracture or pneumothorax. The above report was generated using voice recognition software. It may contain grammatical, syntax or spelling errors. Electronically signed by: Juan A Downey M.D. 08/24/2017 9:11 AM Dictated Date/Time: 08/24/2017 9:06 AM
== END | disposition home or self-care (01) ==
LOC: C.RAD1850 08:50
PROVIDERS: ATTEND Internal Medicine Pulmonary Disease
DX: R91.8 Other nonspecific abnormal finding of lung field (principal); J44.9 Chronic obstructive pulmonary disease, unspecified; Z95.828 Presence of other vascular implants and grafts

== ENCOUNTER → 2017-09-21 | Outpatient (CLI) | payer BC ==
[~2017-09-21] MED LIST changes: -PRED20TA2 PO
== END | disposition home or self-care (01) ==
LOC: C.RDSM 08:34
PROVIDERS: ATTEND Family Medicine Sports Medicine
DX: M25.521 Pain in right elbow (principal)